=== PATIENT | female | born 1955 | race Caucasian/White ===

== ENCOUNTER → 2020-12-22 15:29 | Outpatient (CLI) | payer MEDICARE, SELFPAY ==
--- NOTE | ~2020-12-22 | MM_ITS ---
EXAMINATION: MM screening [facility] BI w michelle HISTORY: Screening mammogram TECHNIQUE: Craniocaudal and mediolateral oblique 3-D tomosynthesis images were obtained and synthetic 2-D images were generated. CAD analysis was submitted and interpreted. COMPARISON: 12/15/2018, 12/13/2017, 11/23/2015 BREAST PARENCHYMAL COMPOSITION: There are scattered areas of fibroglandular density. FINDINGS: Again noted is a stable mass of the outer left breast with the appearance of an intramammar y lymph node. There is no evidence of suspicious mass, calcification, or architectural distortion to suggest malignancy in either breast. There has been no suspicious interval change. IMPRESSION: 1. No mammographic evidence of malignancy. 2. Recommend routine screening mammography in one year. BI-RADS Category 2: Benign finding(s). Reviewed, dictated and finalized at location A.
== END ==
PROVIDERS: PCP Family Medicine Adolescent Medicine; Visit Provider Family Medicine Adolescent Medicine
DX: Z12.31 Encounter for screening mammogram for malignant neoplasm of breast (principal)
CPT/HCPCS: 77063; 77067

== ENCOUNTER 2021-01-27 05:28 | Day surgery (SDC) | payer MEDICARE, SELFPAY ==
[2021-01-17 14:54] VITALS: BMI 39.4
--- NOTE | 2021-01-27 09:08 | WPDANESEPPF ---
Anes - Initial Pre Proc Eval Procedure: Operation Date: 01/27/21 11:00 Proposed Procedures p Esophagogastroduodenoscopy - Lázaro Holley MD Date/Time: 01/27/21 09:08 Surgeon: Lázaro Holley MD Pre Op Diagnosis: GERD Patient Data Age: 65 Gender: F Height: 1.68 m Weight: 110.9 kg Allergies Allergy/AdvReac Type Severity Reaction Status Date / Time adhesive Allergy Severe RASH Verified 01/27/21 10:58 nickel Allergy Severe CAUSES Verified 01/27/21 10:58 SKIN TO BE GREEN phenobarbital Allergy Severe HYPERACTIVI Verified 01/17/21 14:38 TY tetanus toxoid, adsorbed Allergy Severe ABDOMINAL Verified 01/27/21 10:58 PAIN, DIAHRREA meperidine Allergy Mild HYPEREMESIS Verified 01/27/21 10:58 Demerol Allergy Unknown hyperactivi Uncoded 01/27/21 10:58 ty Home Medications Medication Instructions Recorded Confirmed Type Citracal Chew 500 mg PO DAILY 04/27/19 01/17/21 History Cranberry Plus Vitamin C 1 cap PO DAILY 04/27/19 01/17/21 History Dexilant 60 mg PO DAILY 04/27/19 01/17/21 History Januvia 100 mg PO DAILY 04/27/19 01/17/21 History Metamucil 1 tbsp PO DAILY 04/27/19 01/17/21 History Trulicity 0.75 mg SUBCUT WEEKLY 04/27/19 01/17/21 History atorvastatin 20 mg PO DAILY 04/27/19 01/17/21 History bupropion HCl 300 mg PO QAM 04/27/19 01/17/21 History buspirone 10 mg PO TID 04/27/19 01/17/21 History colesevelam [WelChol] 625 mg PO DAILY 04/27/19 01/17/21 History escitalopram oxalate 20 mg PO DAILY 04/27/19 01/17/21 History gabapentin 800 mg PO TID 04/27/19 01/17/21 History glimepiride 2 mg PO DAILY 04/27/19 01/17/21 History isosorbide mononitrate 30 mg PO DAILY 04/27/19 01/17/21 History lamotrigine 200 mg PO DAILY 04/27/19 01/17/21 History loratadine 10 mg PO DAILY 04/27/19 01/17/21 History losartan 50 mg PO DAILY 04/27/19 01/17/21 History magnesium 250 mg PO DAILY 04/27/19 01/17/21 History metformin 2,000 mg PO DAILY 04/27/19 01/17/21 History metoclopramide HCl 10 mg PO Q6H PRN 04/27/19 01/17/21 History multivitamin [One-A-Day Essential] 1 tablet PO DAILY 04/27/19 01/17/21 History nadolol 20 mg PO BID 04/27/19 01/27/21 History oxybutynin chloride 15 mg PO DAILY 04/27/19 01/17/21 History ropinirole 3 mg PO HS 04/27/19 01/17/21 History zinc 50 mg PO DAILY 04/27/19 01/17/21 History potassium gluconate 595 mg PO DAILY 05/13/19 01/17/21 History docusate sodium 100 mg PO BID 7 Days #14 cap 05/14/19 01/17/21 Rx hydrocodone-acetaminophen [Dunbar] 1 tablet PO Q6H PRN 7 Days #30 05/14/19 01/17/21 Rx tablet lorazepam 1 mg PO HS 7 Days #7 tablet 05/14/19 01/17/21 Rx rivaroxaban [Xarelto] 10 mg PO DAILY@17 12 Days #12 05/14/19 01/17/21 Rx tablet aspirin [Adult Aspirin] 81 mg PO DAILY 01/17/21 01/17/21 History icosapent ethyl [Vascepa] 2 g PO BID 01/17/21 01/17/21 History morphine 60 mg PO Q12H 01/17/21 01/17/21 History naloxegol [Movantik] 25 mg PO QAM 01/17/21 01/17/21 History nitroglycerin 0.4 mg SUBLINGUAL Q5-15M PRN 01/17/21 01/17/21 History nystatin [Nyamyc] TOPICAL 01/17/21 01/17/21 History Patient hx anesthesia problems: none Family hx anesthesia problems: none PMFSH Past Medical History Medical History Anxiety Arthritis Bilateral cataracts Maturing CAD (coronary artery disease) Nuclear stress test July 08, 2018 demonstrated small basal/anterior septal ischemia but no infarction with EF 57% History of 1 cardiac stent Depression MAJOR DEPRESSION RECURRENT, SEES , SHOCK TREATMENTS Diabetes Of 6.6 04/27/2019 Dyskinesia of esophagus Noted on EGD September 2014 Fibromyalgia Gastroesophageal reflux disease HTN (hypertension) Hypercholesterolemia Irritable bowel syndrome Obesity BMI of 35.1 Osteopenia after menopause Pulmonary hypertension rvsp 47 RLS (restless legs syndrome) Small airways disease Moderate small airway disease noted on PFTs from August 2017 Suicide attempt 2002 Surgical History Surgical Histor
[2021-01-27 10:57] LABS: Glucose Point of Care 186 mg/dl (65-105)
[2021-01-27 11:04] VITALS: BP 147/79; PULSE 85; RESP 18; TEMP 36.6; O2SAT 92; BMI 38.5
--- NOTE | 2021-01-27 11:15 | PM.HPGS ---
History of Present Illness History of Present Illness Consent: Risks, benefits, and alternatives have been discussed and questions answered. Patient agrees to proceed with procedure. Chief complaint: GERD Narrative: Deepika Mariee is a 65 year old female With refractory acid reflux symptoms. She is on a PPI chronically. Lately however she has had persistent issues with regurgitation. This happens every day and is worse after meals Review of Systems Review of Systems: All systems reviewed & are unremarkable except as noted in HPI and below PMFSH Past Medical History Medical History Anxiety Arthritis Bilateral cataracts Maturing CAD (coronary artery disease) Nuclear stress test July 08, 2018 demonstrated small basal/anterior septal ischemia but no infarction with EF 57% History of 1 cardiac stent Depression MAJOR DEPRESSION RECURRENT, SEES , SHOCK TREATMENTS Diabetes Of 6.6 04/27/2019 Dyskinesia of esophagus Noted on EGD September 2014 Fibromyalgia Gastroesophageal reflux disease HTN (hypertension) Hypercholesterolemia Irritable bowel syndrome Obesity BMI of 35.1 Osteopenia after menopause Pulmonary hypertension rvsp 47 RLS (restless legs syndrome) Small airways disease Moderate small airway disease noted on PFTs from August 2017 Suicide attempt 2001 Surgical History Surgical History H/O esophagogastroduodenoscopy September [address] Holley noting hiatal hernia and gastritis H/O exploratory laparotomy In 1999 and in 2003 History of coronary artery stent placement 1 cardiac stent June [address] Bay Shook, repeat cardiac catheterization June 2018 demonstrated patent stent of the proximal LAD ostial branch and disease noted to the ramus intermedius and left circ but the lesions were not flow limiting History of total hysterectomy with bilateral salpingo-oophorectomy (BSO) 1987 Hx of cholecystectomy Hx of tonsillectomy 1958 Hx of total knee arthroplasty Right total knee arthroplasty 2000 Family History Family History Father Hypertension Cerebrovascular accident Heart disease Mother Pancreatic cancer Sibling Paranoid schizophrenia Brother Social History Social History Social History: Patient is a former smoker. She does not drink alcohol or use illicit substances. She has 3 daughters who are relatively healthy. However 1 of her daughters has already had a knee replacement. Primary care physician is Dr. Amrik Arroyo. Smoking packs per day: 2 Smoking cigarettes per day: 40.0 Years smoked: 13 Smoking pack-years: 26.00 Smoking status: Former smoker Tobacco type: cigarettes Alcohol intake: former Substance use: never Substance use type: does not use Living arrangements: alone Gender identity (if verbalized by the patient): Female Spiritual care concerns: No Agree to blood products: Yes Meds Home Medications and Allergies Home Medications Medication Instructions Recorded Confirmed Type Citracal Chew 500 mg PO DAILY 04/27/19 01/17/21 History Cranberry Plus Vitamin C 1 cap PO DAILY 04/27/19 01/17/21 History Dexilant 60 mg PO DAILY 04/27/19 01/17/21 History Januvia 100 mg PO DAILY 04/27/19 01/17/21 History Metamucil 1 tbsp PO DAILY 04/27/19 01/17/21 History Trulicity 0.75 mg SUBCUT WEEKLY 04/27/19 01/17/21 History atorvastatin 20 mg PO DAILY 04/27/19 01/17/21 History bupropion HCl 300 mg PO QAM 04/27/19 01/17/21 History buspirone 10 mg PO TID 04/27/19 01/17/21 History colesevelam [WelChol] 625 mg PO DAILY 04/27/19 01/17/21 History escitalopram oxalate 20 mg PO DAILY 04/27/19 01/17/21 History gabapentin 800 mg PO TID 04/27/19 01/17/21 History glimepiride 2 mg PO DAILY 04/27/19 01/17/21
[2021-01-27] MEDS: LACTATED RINGERS 1,000 ML 150 ML IV CONT (11:21)
[2021-01-27] MEDS: BENZOCAINE (*SP) 60 ML SPRAY CAN (HURRICAINE) 1 SPRAY MUCOUS MEM (11:48)
[2021-01-27 12:04] VITALS: BP 116/67; PULSE 74; RESP 16; O2SAT 100
[2021-01-27 12:14] VITALS: BP 127/75; PULSE 70; RESP 18; O2SAT 99
--- NOTE | 2021-01-27 12:21 | SUR.PHASEII ---
PER DR SMITH PT IS TO RESUME XARELTO TODAY, PT NOTIFIED
[2021-01-27 12:24] VITALS: BP 133/81; PULSE 68; RESP 20; O2SAT 100
== END 2021-01-27 12:38 | disposition home or self-care (01) ==
PROVIDERS: PCP Family Medicine Adolescent Medicine; Visit Provider Internal Medicine Gastroenterology
PROC: 0DJ08ZZ Inspection of Upper Intestinal Tract, Via Natural or Artificial Opening Endoscopic (ICD-10-PCS; CPT 43235; principal; 2021-01-27 11:00)
DX: K21.9 Gastro-esophageal reflux disease without esophagitis (principal); K29.50 Unspecified chronic gastritis without bleeding; K22.4 Dyskinesia of esophagus; I10 Essential (primary) hypertension; I27.20 Pulmonary hypertension, unspecified; I25.10 Atherosclerotic heart disease of native coronary artery without angina pectoris; E11.9 Type 2 diabetes mellitus without complications; E78.00 Pure hypercholesterolemia, unspecified; E66.9 Obesity, unspecified; K58.9 Irritable bowel syndrome, unspecified; M79.7 Fibromyalgia; M85.80 Other specified disorders of bone density and structure, unspecified site; M19.90 Unspecified osteoarthritis, unspecified site; G25.81 Restless legs syndrome; H26.9 Unspecified cataract; F32.9 Major depressive disorder, single episode, unspecified; Z95.5 Presence of coronary angioplasty implant and graft; Z90.710 Acquired absence of both cervix and uterus; Z90.722 Acquired absence of ovaries, bilateral; Z90.49 Acquired absence of other specified parts of digestive tract; Z96.651 Presence of right artificial knee joint; Z87.891 Personal history of nicotine dependence
CPT/HCPCS: 43239; 82948; 88305; 88342; J2704; J7120

== ENCOUNTER 2021-03-04 22:26 | Emergency (ER) | payer MEDICARE, SELFPAY ==
--- NOTE | ~2021-03-04 | CT_ITS ---
EXAMINATION: CT brain wo con, CT facial bones wo con EXAM DATE: 03/05/2021 01:40 INDICATION: Blunt head injury. Laceration to chin, left cheek hematoma, pain. On blood thinners. Nose pain. TECHNIQUE: Spiral CT of the head was performed without contrast. Axial, coronal and sagittal images were reviewed. Spiral CT of the facial bones was performed without contrast. Axial images were revie wed. Coronal and sagittal reformatted images were also reviewed. The dose-length product (DLP) for this examination was 605.33 (accession [id number]), 499.35 (accession [id number]) mGy-cm. Th e exposure was tailored according to patient size, and iterative reconstruction (ASIR) was used as ad ditional dose reduction technique. Comparison is made to prior examination from 01/17/2019. FINDINGS: HEAD CT: There is no acute intraparenchymal hemorrhage. No evidence of intraparenchymal brain mass l esion. No evidence of acute infarction. There is no mass effect or midline shift. There is no obstr uctive hydrocephalus suspected. There are no extra-axial collections. There are no calvarial acute fractures. FACIAL CT: There are no displaced acute nasal bone fractures. The mandible, sinuses and orbits are i ntact. The orbits, globes and extraocular muscles are unremarkable. There is small left cheek hem atoma, surrounding left periorbital edema. Small focus of subcutaneous emphysema underneath the chin, probably a laceration, clinical correlation. The visualized sinuses and mastoid air cells are well aerated. IMPRESSION: 1. No acute intracranial findings. 2. No acute facial fracture. 3. Left cheek contusion, periorbital swelling, chin laceration. Reviewed, dictated and finalized at location A. IMPRESSION: 1. No acute intracranial findings. 2. No acute facial fracture. 3. Left cheek contusion, periorbital swelling, chin laceration.
[2021-03-04 22:30] VITALS: BP 110/90; PULSE 95; RESP 17; TEMP 36.4; O2SAT 95
--- NOTE | 2021-03-04 23:18 | PC.NURSE ---
Pt arrives with mask in place and reported chin laceration. Bleeding controlled and no s/s of distress. speech clear.
--- NOTE | 2021-03-05 00:16 | ED.WOUNDLAC ---
HPI - Wound/Laceration General Chief Complaint: Wound/Laceration Stated Complaint: FALL AND HIT FACE ON BACK DOOR - CHIN LAC Time Seen by Provider: 03/04/21 23:51 History of Present Illness HPI narrative: Patient is a 65-year-old female who presents ER with laceration to her chin. She reports she was fighting with her 20 pound cat to get it down stairs when she tripped over it and fell into a door. The door apparently had runs on it. She struck her face and hit her chin on the drawing as she fell down. She did not lose consciousness but she does have significant bruising to her face. She is on a blood thinner. She has a laceration to the underside of her chin. She is allergic to tetanus vaccine Related Data Home Medications Medication Instructions Recorded Confirmed Citracal Chew 500 mg PO DAILY 04/27/19 01/17/21 Cranberry Plus Vitamin C 1 cap PO DAILY 04/27/19 01/17/21 Dexilant 60 mg PO DAILY 04/27/19 01/17/21 Januvia 100 mg PO DAILY 04/27/19 01/17/21 Metamucil 1 tbsp PO DAILY 04/27/19 01/17/21 Trulicity 0.75 mg SUBCUT WEEKLY 04/27/19 01/17/21 atorvastatin 20 mg PO DAILY 04/27/19 01/17/21 bupropion HCl 300 mg PO QAM 04/27/19 01/17/21 buspirone 10 mg PO TID 04/27/19 01/17/21 colesevelam [WelChol] 625 mg PO DAILY 04/27/19 01/17/21 escitalopram oxalate 20 mg PO DAILY 04/27/19 01/17/21 gabapentin 800 mg PO TID 04/27/19 01/17/21 glimepiride 2 mg PO DAILY 04/27/19 01/17/21 isosorbide mononitrate 30 mg PO DAILY 04/27/19 01/17/21 lamotrigine 200 mg PO DAILY 04/27/19 01/17/21 loratadine 10 mg PO DAILY 04/27/19 01/17/21 losartan 50 mg PO DAILY 04/27/19 01/17/21 magnesium 250 mg PO DAILY 04/27/19 01/17/21 metformin 2,000 mg PO DAILY 04/27/19 01/17/21 metoclopramide HCl 10 mg PO Q6H PRN 04/27/19 01/17/21 multivitamin [One-A-Day Essential] 1 tablet PO DAILY 04/27/19 01/17/21 nadolol 20 mg PO BID 04/27/19 01/27/21 oxybutynin chloride 15 mg PO DAILY 04/27/19 01/17/21 ropinirole 3 mg PO HS 04/27/19 01/17/21 zinc 50 mg PO DAILY 04/27/19 01/17/21 potassium gluconate 595 mg PO DAILY 05/13/19 01/17/21 Movantik 25 mg PO QAM 01/17/21 01/17/21 aspirin 81 mg PO DAILY 01/17/21 01/17/21 icosapent ethyl [Vascepa] 2 g PO BID 01/17/21 01/17/21 morphine 60 mg PO Q12H 01/17/21 01/17/21 nitroglycerin 0.4 mg SUBLINGUAL Q5-15M PRN 01/17/21 01/17/21 nystatin [Nyamyc] TOPICAL 01/17/21 01/17/21 Allergies Allergy/AdvReac Type Severity Reaction Status Date / Time adhesive Allergy Severe RASH Verified 03/04/21 22:33 nickel Allergy Severe CAUSES Verified 03/04/21 22:33 SKIN TO BE GREEN phenobarbital Allergy Severe HYPERACTIVI Verified 03/04/21 22:33 TY tetanus toxoid, adsorbed Allergy Severe ABDOMINAL Verified 03/04/21 22:33 PAIN, DIAHRREA meperidine Allergy Mild HYPEREMESIS Verified 03/04/21 22:33 Demerol Allergy Unknown hyperactivi Uncoded 01/27/21 10:58 ty Review of Systems Review of Systems: All systems reviewed & are unremarkable except as noted in HPI and below Constitutional: Constitutional: Denies chills, Denies fever(s) and Denies weakness ENT: Comments: Left cheek bruising/swelling/pain. Chin laceration. Gastrointestinal: Gastrointestinal: Denies abdominal pain, Denies nausea and Denies vomiting Neurologic: Denies syncope, Denies headache(s), Denies focal weakness and Denies numbness PMFSH Past Medical History Medical History Anxiety Arthritis Bilateral cataracts Maturing CAD (coronary artery disease) Nuclear stress test July 08, 2018 demonstrated small basal/anterior septal ischemia but no infarction with EF 57% History of 1 cardiac stent Depression MAJOR DEPRESSION RECURRENT, SEES , SHOCK TREATMENTS Diabetes Of 6.6 04/27/2019 Dyskinesia of esophagus Noted on EGD September 2014 Fibromyalgia Gastroesophageal reflux disease HTN (hypertension) Hypercholesterolemia Irritable bowel syndrome Obesity BMI of 35.1 Osteopenia after menopause
[2021-03-05] MEDS: ONDANSETRON HCL ODT 4 MG TABLET PO (00:28)
--- NOTE | 2021-03-05 01:03 | PC.NURSE ---
ERP in room suturing patient.
--- NOTE | 2021-03-05 01:21 | PC.NURSE ---
Patient taken to CT.
[2021-03-05 02:58] VITALS: BP 121/58; PULSE 84; RESP 17; TEMP 36.1; O2SAT 96
== END 2021-03-05 03:00 | disposition home or self-care (01) ==
PROVIDERS: Emergency Provider Emergency Medicine; PCP Family Medicine Adolescent Medicine
DX: S01.81XA Laceration without foreign body of other part of head, initial encounter (principal); S00.83XA Contusion of other part of head, initial encounter; I25.10 Atherosclerotic heart disease of native coronary artery without angina pectoris; E11.9 Type 2 diabetes mellitus without complications; I10 Essential (primary) hypertension; E78.00 Pure hypercholesterolemia, unspecified; I27.20 Pulmonary hypertension, unspecified; K22.4 Dyskinesia of esophagus; E66.9 Obesity, unspecified; Z68.41 Body mass index [BMI] 40.0-44.9, adult; M79.7 Fibromyalgia; M85.80 Other specified disorders of bone density and structure, unspecified site; M19.90 Unspecified osteoarthritis, unspecified site; G25.81 Restless legs syndrome; F41.9 Anxiety disorder, unspecified; F32.9 Major depressive disorder, single episode, unspecified; Z79.01 Long term (current) use of anticoagulants; Z79.82 Long term (current) use of aspirin; Z79.84 Long term (current) use of oral hypoglycemic drugs; Z95.5 Presence of coronary angioplasty implant and graft; Z96.651 Presence of right artificial knee joint; Z87.891 Personal history of nicotine dependence; W01.198A Fall on same level from slipping, tripping and stumbling with subsequent striking against other object, initial encounter
CPT/HCPCS: 12013; 70450; 70486; 99284; A9270

== ENCOUNTER 2021-08-11 09:59 | Outpatient (CLI) | payer OTHER, SELFPAY ==
--- NOTE | ~2021-08-11 | XR_ITS ---
XR UGI w esoph water soluble DATE: 08/11/2021 10:46 INDICATION: Gastroesophageal reflux TECHNIQUE: Fluoroscopy and rapid sequence spot radiographs during oral ingestion of barium. Spot and overhead images of the esophagus, stomach and duodenum. 140 images 50.9 DAP 1.1 minutes fluoroscopy time COMPARISON: 01/19/2019 CT abdomen pelvis FINDINGS: There is abnormal posterior impression upon the lower cervical esophagus due to cricopharyn geus muscle dysfunction. Otherwise no stricture, mucosal fold thickening, erosion, ulceration or intraluminal mass lesion of t he esophagus, stomach or duodenum is detected. The proximal small bowel mucosal pattern appears troy l. IMPRESSION: Cricopharyngeus muscle dysfunction Reviewed, dictated and finalized at Location [facility]. Reviewed, dictated and finalized at location A. D OPERATIONS MANAGER
== END 2021-08-11 10:00 | disposition home or self-care (01) ==
LOC: ANHIMG 10:03
PROVIDERS: PCP Family Medicine Adolescent Medicine; Visit Provider Surgery
DX: K21.9 Gastro-esophageal reflux disease without esophagitis (principal); R13.10 Dysphagia, unspecified
CPT/HCPCS: 74240

== ENCOUNTER 2022-02-16 12:21 | Outpatient (CLI) | payer OTHER, MEDICAID, SELFPAY ==
[2022-02-16 13:39] LABS: Basophils Percent Auto 0.5 % (0.2-1.2); Eosinophils Absolute Auto 0.2 K/mm3 (0-0.3); Eosinophils Percent Auto 3.7 % (0-4.4); Hemoglobin 10.4 g/dL (12.0-15.0); Immature Granulocyte Absolute 0.01 K/mm3 (0.00-0.031); Immature Granulocyte Percent A 0.2 % (0-0.5); Lymphocytes Absolute Auto 1.93 K/mm3 (0.9-3.2); Lymphocytes Percent Auto 33.7 % (18.3-44.2); Mean Corpuscular HGB Conc 30.6 g/dl (32-36); Mean Corpuscular Hemoglobin 24.8 pg (26-34); Mean Corpuscular Volume 81.1 fl (80-100); Monocytes Absolute Auto 0.4 K/mm3 (0.1-0.6); Monocytes Percent Auto 6.1 % (2.6-8.5); Neutrophils Absolute Auto 3.2 K/mm3 (1.3-6.7); Neutrophils Percent Auto 55.8 % (45.5-73.1); Platelet Count Result 255 k/mm3 (150-375); Red Blood Count 4.19 M/mm3 (4.2-5.4); Red Cell Distribution Width 14.6 % (11.5-14.5); White Blood Count 5.7 K/mm3 (4.5-10.0)
[2022-02-16 13:51] LABS: Alanine Aminotransferase 16 U/L (6-35); Albumin Level 4.4 g/dL (3.5-5.1); Alkaline Phosphatase 69 U/L (38-126); Anion Gap 12 mmol/L (8-16); Aspartate Amino Transferase 20 U/L (14-36); Bilirubin,Total 0.1 mg/dL (0.2-1.3); Blood Urea Nitrogen 11 mg/dL (7-17); CRP 0.5 mg/dL (<1.0); Calcium 8.5 mg/dL (8.4-10.2); Carbon Dioxide 28 mmol/L (22-30); Chloride 98 mmol/L (98-107); Estimated Glomerular Filt Rate > 60; Glucose 181 mg/dL (65-110); Potassium 4.4 mmol/L (3.4-5.0); Sodium 138 mmol/L (137-145)
== END 2022-02-16 12:22 | disposition home or self-care (01) ==
PROVIDERS: PCP Family Medicine Adolescent Medicine; Referring Provider Orthopaedic Surgery; Visit Provider Internal Medicine Cardiovascular Disease
DX: R94.39 Abnormal result of other cardiovascular function study (principal); I25.118 Atherosclerotic heart disease of native coronary artery with other forms of angina pectoris; Z01.810 Encounter for preprocedural cardiovascular examination; T85.698A Other mechanical complication of other specified internal prosthetic devices, implants and grafts, initial encounter; T84.039A Mechanical loosening of unspecified internal prosthetic joint, initial encounter
CPT/HCPCS: 36415; 80053; 85025; 86140

== ENCOUNTER 2022-02-20 00:43 | Day surgery (SDC) | payer OTHER, MEDICAID, SELFPAY ==
[2022-02-19 15:51] VITALS: BMI 38.5
[2022-02-20] VITALS (11 sets, daily range): BP systolic 101–132; BP diastolic 54–64; PULSE 61–76; RESP 12–17; TEMP 36.8; O2SAT 90–95; BMI 38.6
--- NOTE | 2022-02-20 09:18 | WPDMODSED ---
Moderate Sedation Note-Pt Data Patient Data Allergies Allergy/AdvReac Type Severity Reaction Status Date / Time adhesive Allergy Severe RASH Verified 02/20/22 07:19 nickel Allergy Severe CAUSES Verified 02/20/22 07:19 SKIN TO BE GREEN phenobarbital Allergy Severe HYPERACTIVI Verified 02/20/22 07:19 TY tetanus toxoid, adsorbed Allergy Severe ABDOMINAL Verified 02/20/22 07:19 PAIN, DIAHRREA meperidine Allergy Mild HYPEREMESIS Verified 02/20/22 07:19 Demerol Allergy Unknown hyperactivi Uncoded 02/19/22 15:38 ty Home Medications Medication Instructions Recorded Confirmed Type cranberry concentrate-ascorbic 1 cap PO DAILY 04/27/19 02/19/22 History acid 140 mg-100 mg capsule (Cranberry Plus Vitamin C) multivitamin (One-A-Day Essential 1 tablet PO DAILY 04/27/19 02/19/22 History tablet) psyllium husk 3.4 gram/5.4 gram 1 tbsp PO DAILY 04/27/19 02/19/22 History oral powder (Metamucil) zinc 50 mg tablet 50 mg PO DAILY 04/27/19 02/19/22 History potassium gluconate 595 mg (99 mg) 595 mg PO DAILY 05/13/19 02/19/22 History tablet rivaroxaban 10 mg tablet (Xarelto) 10 mg PO DAILY@17 12 days #12 tabs 05/14/19 02/19/22 Rx aspirin 81 mg tablet 81 mg PO DAILY 01/17/21 02/19/22 History nitroglycerin 0.4 mg sublingual 0.4 mg sublingual Q5-15M PRN Chest 01/17/21 02/19/22 History tablet Pain nystatin 100,000 unit/gram topical See Rx Instructions .Route .COMPLEX 01/17/21 02/19/22 History powder (Nyamyc) atorvastatin 20 mg tablet 20 mg PO DAILY #30 tabs 08/16/21 02/19/22 Rx colesevelam 625 mg tablet (WelChol) 625 mg PO DAILY #30 tabs 08/16/21 02/19/22 Rx dulaglutide 0.75 mg/0.5 mL 0.75 mg (0.5 mL) subcut WEEKLY #4 08/16/21 02/19/22 Rx subcutaneous pen injector mL (Trulicity) escitalopram oxalate 20 mg tablet 20 mg PO DAILY #30 tabs 08/16/21 02/19/22 Rx gabapentin 800 mg tablet 800 mg PO TID #90 tabs 08/16/21 02/19/22 Rx glimepiride 2 mg tablet 2 mg PO DAILY #30 tabs 08/16/21 02/19/22 Rx icosapent ethyl 1 gram capsule 2 g PO BID #120 caps 08/16/21 02/19/22 Rx (Vascepa) isosorbide mononitrate 30 mg 30 mg PO DAILY #30 tabs 08/16/21 02/19/22 Rx tablet,extended release 24 hr lamotrigine 200 mg tablet 200 mg PO DAILY #30 tabs 08/16/21 02/19/22 Rx loratadine 10 mg tablet 10 mg PO DAILY #30 tabs 08/16/21 02/19/22 Rx losartan 50 mg tablet 50 mg PO DAILY #30 tabs 08/16/21 02/19/22 Rx magnesium 250 mg tablet 250 mg PO DAILY #30 tabs 08/16/21 02/19/22 Rx metformin 500 mg tablet 2,000 mg PO DAILY #120 tabs 08/16/21 02/19/22 Rx naloxegol 25 mg tablet (Movantik) 25 mg PO QAM #30 tabs 08/16/21 02/19/22 Rx metoclopramide HCl 10 mg tablet 10 mg PO QHS PRN Nausea #90 tabs 09/08/21 02/19/22 Rx dexlansoprazole 60 mg 60 mg PO DAILY #30 caps 09/25/21 02/19/22 Rx capsule,biphase delayed release (Dexilant) bupropion HCl 300 mg 24 hr tablet, 300 mg PO QAM 10/23/21 02/19/22 History extended release docusate sodium 100 mg capsule 200 mg PO DAILY 10/23/21 02/19/22 History (Stool Softener) hydrocodone 10 mg-acetaminophen 1 tablet PO Q8H PRN Pain 10/23/21 02/19/22 History 325 mg tablet meclizine 25 mg tablet 25 mg PO QID 10/23/21 02/19/22 History oxybutynin chloride 10 mg 10 mg PO DAILY 10/23/21 02/19/22 History tablet,extended release 24 hr prochlorperazine maleate 10 mg 10 mg PO Q8H PRN Nausea 10/23/21 02/19/22 History tablet ropinirole 3 mg tablet 3 mg PO QHS #30 tabs 10/23/21 02/19/22 Rx budesonide 0.5 mg/2 mL suspension 0.5 mg (2 mL) inhalation BID #120 10/31/21 02/19/22 Rx for nebulization mL propranolol 120 mg capsule,24 See Rx Instructions .Route 11/01/21 02/19/22 Rx hr,extended release .COMPLEX #30 caps sitagliptin 100 mg tablet (Januvia) 100 mg PO DAILY #30 tabs 11/01/21 02/19/22 Rx nystatin 100,000 unit/gram topical 1 applic topical BID #30 grams 11/02/21 02/19/22 Rx cream morphine 60 mg tablet,extended 60 mg PO Q12H #60 tabs 01/23/22 02/19/22 Rx release primidone 50 mg
--- NOTE | 2022-02-20 09:19 | WPDHPUPDATE1 ---
History and Physical Update Update Date/Time: 02/20/22 09:19 History and Physical has been reviewed, including an updated exam of the patient. There are NO changes in the patient's condition. Risks, benefits, and alternatives have been discussed and questions answered. Patient agrees to proceed with procedure.
--- NOTE | 2022-02-20 10:55 | PM.IMHP ---
H&P: HPI History of Present Illness Date/Time: 02/20/22 10:55 Chief Complaint: Shortness of breath Narrative: 66-year-old female with known CAD, history of PCI/stenting of ostial-proximal LAD using 2.75 x 24 mm everolimus eluting stent on 07/04/2017; type 2 diabetes mellitus, dyslipidemia, obesity. Patient was referred by Dr. Oro for coronary angiogram in the setting of shortness of breath and abnormal MPI. Patient has been experiencing dyspnea on exertion and left arm discomfort with exertion. Review of Systems Review of Systems: General: Negative for fever, chills, fatigue Psychological: Negative for anxiety, depression Ophthalmic: negative for loss of vision ENT: Negative for epistaxis, headaches Allergy and immunology: Negative for hives, nasal congestion Hematologic and lymphatic: Negative for overt bleeding problems Endocrine: Negative for hot flashes, palpitations Respiratory: Negative for cough, hemoptysis Cardiovascular: Negative for chest pain, Positive for shortness of breath and left arm pain Gastrointestinal: Negative for abdominal pain, nausea, vomiting, hematochezia Musculoskeletal: Negative for myalgia, joint pains Neurological: Negative for weakness Dermatological: Negative for rash, skin discoloration PMFSH Past Medical History Medical History Bilateral cataracts Maturing Dyskinesia of esophagus Noted on EGD September 2014 Fibromyalgia Gastroesophageal reflux disease HTN (hypertension) Obesity BMI of 35.1 Osteopenia after menopause Pulmonary hypertension rvsp 47 RLS (restless legs syndrome) Small airways disease Moderate small airway disease noted on PFTs from August 2017 Suicide attempt 2001 Surgical History Surgical History H/O esophagogastroduodenoscopy September [address] Holley noting hiatal hernia and gastritis H/O exploratory laparotomy In 1999 and in 2003 History of coronary artery stent placement 1 cardiac stent June [address] Bay Shook, repeat cardiac catheterization June 2018 demonstrated patent stent of the proximal LAD ostial branch and disease noted to the ramus intermedius and left circ but the lesions were not flow limiting History of total hysterectomy with bilateral salpingo-oophorectomy (BSO) 1987 Hx of cholecystectomy Hx of tonsillectomy 1958 Hx of total knee arthroplasty Right total knee arthroplasty 2000 Family History Family History Father Hypertension Cerebrovascular accident Heart disease Mother Pancreatic cancer Sibling Paranoid schizophrenia Brother Daughter No problems noted. Daughter No problems noted. Daughter No problems noted. Social History Social History (Updated 01/23/22 @ 14:42 by Steffanie Ramirez MA) Social History: Patient is a former smoker. She does not drink alcohol or use illicit substances. She has 3 daughters who are relatively healthy. Primary care physician is Dr. Amrik Arroyo. Smoking packs per day: 2 Smoking cigarettes per day: 40.0 Years smoked: 13 Smoking pack-years: 26.00 Smoking status: Former smoker Tobacco type: cigarettes Second hand tobacco smoke exposure: No Smoking end date: 06/10/97 Alcohol intake: former Substance use: never Substance use type: does not use Gender identity (if verbalized by the patient): Female Spiritual care concerns: No Agree to blood products: Yes Meds Home Medications and Allergies Home Medications Medication Instructions Recorded Confirmed Type cranberry concentrate-ascorbic 1 cap PO DAILY 04/27/19 02/19/22 History acid 140 mg-100 mg capsule (Cranberry Plus Vitamin C) multivitamin (One-A-Day Essential 1 tablet PO DAILY 04/27/19 02/19/22 History tablet) psyllium husk 3.4 gram/5.4
--- NOTE | 2022-02-20 10:59 | WPDCARDPROC ---
Cardiac Cath Procedure Note Date of procedure:: 02/20/22 Performing physician:: Nathan Rivera MD Procedure Procedure performed:: CARDIAC CATHETERIZATION AND PERCUTANEOUS CORONARY INTERVENTION REPORT DATE OF PROCEDURE: 02/20/2022 INDICATION FOR PROCEDURE: Shortness of breath, left arm discomfort with exertion; abnormal MPI BRIEF CLINICAL HISTORY: 66-year-old female with known CAD, history of PCI/stenting of ostial-proximal LAD using 2.75 x 24 mm everolimus eluting stent on ?07/04/2017; type 2 diabetes mellitus, dyslipidemia, obesity. ? Patient was referred by Dr. Shook for coronary angiogram in the setting of shortness of breath, exertional left arm discomfort and abnormal MPI.? Patient had MPI done on 01/24/2022 which reportedly showed borderline/equivocal ischemic changes on the EKG; EF 73%, small area of mild apical lateral ischemia. Benefits and risks of the procedure were discussed with the patient in depth, and informed consent was obtained prior to the procedure. Risks of the procedure include but are not limited to vascular complications including groin hematoma, retroperitoneal bleed, vessel perforation; periprocedural HI, cardiac arrhythmias, stroke, contrast induced nephropathy, and . After discussing all the benefits, risks and alternatives, patient was willing to proceed with the procedure. PROCEDURES PERFORMED: 1. Left heart catheterization- Selective left and right coronary angiogram; left ventriculogram and hemodynamic assessment 2. Percutaneous coronary intervention- a) Intravascular ultrasound ( IVUS) of left main; ostial-proximal LAD b) IVUS of left main and ostial left circumflex artery; and ramus intermedius 3. Selective right common femoral angiogram and deployment of Mynx hemostatic device 4. Moderate sedation-CPT code 72641 MODERATE SEDATION: Midazolam 1 mg; fentanyl 25 mcg. Start time 0940 , Stop time 1047 ; Total puif-on-eutk time 67 minutes; Milton Hurley RN was trained observer for moderate sedation. ACCESS SITE: Right common femoral artery PROCEDURE NOTE: After obtaining informed consent, patient was brought to catheterization lab and prepped and draped in a usual sterile manner. After local anesthesia with lidocaine, right common femoral artery access was taken with micropuncture needle followed by insertion of a 5 Slovak sheath. Selective left and right coronary angiogram was performed using 5 Slovak JL4 and JR4 catheters respectively. Orthogonal views were taken. Next, a 5 Slovak pigtail catheter was advanced in the LV cavity and was flushed with normal saline. LV pressure measurement was performed. After this, left ventriculogram was performed. The catheter was flushed again, and gradient across the aortic valve was measured on the pullback of the catheter. The angiographic and IVUS findings are described below. FINDINGS: LEFT MAIN CORONARY: The left main coronary artery is a medium to large caliber vessel with about 20-30% narrowing at the ostial-proximal segment; and about 20-30% narrowing at the distal segment. The vessel trifurcates into LAD, ramus intermedius and left circumflex branches. LEFT ANTERIOR DESCENDING ARTERY: The LAD is a medium caliber vessel. Previously placed stent at the ostium -proximal segment is patent without significant lumen loss angiographically. The vessel tapers distally and reaches the LV apex. Diagonal branches are small caliber vessels. RAMUS INTERMEDIUS: The ramus intermedius is a medium caliber vessel with poorly defined stenosis at the ostium. LEFT CIRCUMFLEX ARTERY: The left circumflex artery is a medium to large caliber vessel with high-grade stenosis at the ostium. The vessel continues as OM branch the significant focal stenosis. RIGHT CORONARY ARTERY: Large size, dominant vessel without significant focal stenosis. Gives rise to medium caliber PDA and PLV branches. There is some collateral filling of LCX from distal RCA branch. LEFT
[2022-02-20 11:32] LABS: Activated Clotting Time 295 SEC (74-137)
--- NOTE | 2022-02-20 11:40 | SUR.PHASEII ---
Pt resting in bed, daughter at bedside, NAD noted, VSS, respirations even and unlabored. O2 saturation 90% RA, O2 sat increases when pt encouraged to take a deep breath, denies shortness of breath. Pt etco2 increased with supplemental O2 during procedure. Will continue to monitor O2 saturation and need for supplemental O2. Side rails up x 2, call light within reach.
[2022-02-20] MEDS: SODIUM CHLORIDE 0.9% IV 1,000 ML 125 ML IV CONT (12:17)
[2022-02-20] MEDS: SODIUM CHLORIDE 0.9% IV 500 ML 100 ML IV CONT (12:18)
--- NOTE | 2022-02-20 12:53 | SUR.PHASEII ---
Pt resting in bed, head of bed elevated to 30 degrees, meal tray given, right groin puncture site clear, no bleeding or hematoma.
== END 2022-02-20 14:22 | disposition home or self-care (01) ==
PROVIDERS: PCP Family Medicine Adolescent Medicine; Visit Provider Internal Medicine Cardiovascular Disease
PROC: 4A023N7 Measurement of Cardiac Sampling and Pressure, Left Heart, Percutaneous Approach (ICD-10-PCS; CPT 93452; principal; 2022-02-20 08:30)
PROC: (CPT 92979; 2022-02-20 08:30)
DX: I25.10 Atherosclerotic heart disease of native coronary artery without angina pectoris (principal); R93.1 Abnormal findings on diagnostic imaging of heart and coronary circulation; R06.02 Shortness of breath; Z95.5 Presence of coronary angioplasty implant and graft; E11.9 Type 2 diabetes mellitus without complications; E78.5 Hyperlipidemia, unspecified; I10 Essential (primary) hypertension; M79.7 Fibromyalgia; M85.80 Other specified disorders of bone density and structure, unspecified site; I27.20 Pulmonary hypertension, unspecified; Z91.51 Personal history of suicidal behavior; G25.81 Restless legs syndrome; J45.909 Unspecified asthma, uncomplicated; H26.9 Unspecified cataract; E66.9 Obesity, unspecified; Z68.38 Body mass index [BMI] 38.0-38.9, adult; Z87.891 Personal history of nicotine dependence; Z79.82 Long term (current) use of aspirin; Z79.899 Other long term (current) drug therapy; Z79.84 Long term (current) use of oral hypoglycemic drugs; Z79.51 Long term (current) use of inhaled steroids; Z79.891 Long term (current) use of opiate analgesic
CPT/HCPCS: 36415; 80053; 85025; 86140; 92978; 92979; 93458; C1753; C1760; C1769; C1887; C1894; G0269; J0583; J1644; J2250; J3010; J7030; J7040

== ENCOUNTER 2022-05-24 10:08 | Outpatient (CLI) | payer OTHER, MEDICAID, SELFPAY ==
--- NOTE | ~2022-05-24 | CT_ITS ---
EXAMINATION: NM bone 3 phase, CT knee LT wo con DATE: 05/24/2022 13:51 INDICATION: Mechanical complication of implant at the left knee TECHNIQUE: 1. 23.3 mCi Tc-99m HDP by intravenous route. Scintigrams of the bilateral knees were obtained in ang iographic, blood pool, and delayed phases. 2. High resolution computed tomography (CT) of the left knee was performed without intravenous contra st. Additional sagittal and coronal reconstructions were performed. Automated exposure control and it erative reconstruction technique were employed. The dose-length product was 461.42 mGy-cm. COMPARISON: Left knee radiographs dated 05/12/2019 FINDINGS: Bone scan: Normal symmetric patterns of activity at both knees on the early angiographic days of imaging. Photop enic defects are seen at both knees on the immediate and delayed imaging corresponding to bilateral t otal knee arthroplasties. There is otherwise normal symmetric distribution of soft tissue activity on the immediate blood pool images. Asymmetric mild increased uptake underlying the medial side of the tibial tray at the left knee. There is otherwise normal symmetric distribution of mild linear activit y along the margins of the bilateral femoral and tibial components of the arthroplasties and at the b ilateral patellae. Left knee CT: Left total knee arthroplasty with patellar resurfacing which is in essentially anatomic alignment. Th ere is metallic streak artifact which partially obscures the immediately adjacent bone and soft tissu es. There is a small triangular region of increased lucency situated between the proximal aspect of t he posterior tibial component and the central aspect of the anteromedial quadrant of the tibial tray. This region measures 1.5 cm medial to lateral, 1.1 cm AP and up to 7 mm craniocaudally. This surroun ds a small amount of more dense cement appears to extend towards small round lucent likely coronal wh ole tract which extends anteromedially towards a oblique coronal whole tract which extends from anter omedial to posterolateral across the medial metaphyseal region of the proximal tibia. There is no oth er lucency surrounding the arthroplasty components to suggest loosening. Small left knee joint effusi on at the suprapatellar pouch. Sagittally oriented linear band of postoperative scarring the subcutan eous tissues anterior to the knee. Soft tissues are otherwise unremarkable. IMPRESSION: 1. Bilateral total knee arthroplasties with relatively mild asymmetric increased uptake underlying t he anteromedial aspect of the tibial component of the left knee arthroplasty. There is a correspondin g small region of increased lucency along side the tibial component at this location however this thor rounds a small amount of cement which extends towards an apparent drill tract in the underlying metap hysis. The absence of any further abnormal increased lucency or abnormal uptake surrounding the remai nder of the tibial component would argue against loosening and there is no suggestion of inflammation either on CT imaging or on the angiographic and immediate blood pool scintigraphic images to suggest infection or fracture. Reviewed, dictated and finalized at location A. COMMUNICATOR IMPRESSION: 1. Bilateral total knee arthroplasties with relatively mild asymmetric increas ed uptake underlying the anteromedial aspect of the tibial component of the lef t knee arthroplasty. There is a corresponding small region of increased lucency along side the tibial component at this location however this surrounds a smal l amount of cement which extends towards an apparent drill tract in the underly ing metaphysis. The absence of any further abnormal increased lucency or abnorm al uptake surrounding the remainder of the tibial com
== END 2022-05-24 10:09 | disposition home or self-care (01) ==
PROVIDERS: PCP Family Medicine Adolescent Medicine; Visit Provider Orthopaedic Surgery
DX: T85.698A Other mechanical complication of other specified internal prosthetic devices, implants and grafts, initial encounter (principal); T84.039A Mechanical loosening of unspecified internal prosthetic joint, initial encounter
CPT/HCPCS: 73700; 78315; A9561

== ENCOUNTER 2022-06-13 10:18 | Outpatient (CLI) | payer OTHER, MEDICAID, SELFPAY ==
--- NOTE | ~2022-06-13 | US_ITS ---
EXAMINATION: US knee asp inj w image LT DATE: 06/13/2022 11:46 INDICATION: Left knee joint effusion. TECHNIQUE: The procedure including the risks, benefits, and alternatives was discussed with the patie nt. Risks discussed included bleeding and infection. The patient understood the risks and agreed to p roceed. The skin overlying the left knee was prepped and draped in usual sterile fashion. Anesthetic was administered with 1% lidocaine subcutaneously. An 18 gauge needle was inserted into the left kn ee joint effusion using ultrasound guidance. Fluid was aspirated, and the needle was removed. The ent ry site was cleaned and dressed. There were no immediate complications. FINDINGS: There is a left knee joint effusion. IMPRESSION: 1. Ultrasound-guided needle aspiration of a left knee joint effusion yielding 15 mL serosanguineous f luid. Reviewed, dictated and finalized at location A. COVERER IMPRESSION: 1. Ultrasound-guided needle aspiration of a left knee joint effusion yielding 1 5 mL serosanguineous fluid.
== END 2022-06-13 10:19 | disposition home or self-care (01) ==
LOC: ANHIMG 10:23
PROVIDERS: PCP Family Medicine Adolescent Medicine; Visit Provider Orthopaedic Surgery
DX: Z96.652 Presence of left artificial knee joint (principal)
CPT/HCPCS: 20611; 87070; 87075; 87205

== ENCOUNTER 2022-06-21 13:49 | Outpatient (CLI) | payer OTHER, MEDICAID, SELFPAY ==
[2022-06-21 14:26] LABS: CRP < 0.5 mg/dL (<1.0)
[2022-06-21 14:57] LABS: Erythrocyte Sedimentation Rate 28 mm/hr (0-20)
== END 2022-06-21 13:50 | disposition home or self-care (01) ==
LOC: ANHLAB 13:51
PROVIDERS: PCP Family Medicine Adolescent Medicine; Visit Provider Orthopaedic Surgery
DX: T85.698A Other mechanical complication of other specified internal prosthetic devices, implants and grafts, initial encounter (principal); T84.039A Mechanical loosening of unspecified internal prosthetic joint, initial encounter
CPT/HCPCS: 36415; 85652; 86140

== ENCOUNTER 2022-08-16 15:00 | Outpatient (RCR) | payer OTHER, MEDICAID, SELFPAY ==
[2022-05-08 15:43] VITALS: PULSE 76
== END 2022-08-16 18:48 | disposition home or self-care (01) ==
LOC: ANHCPREHAB 15:00
PROVIDERS: PCP Family Medicine Adolescent Medicine; Visit Provider Nurse Practitioner Adult Health
DX: Z95.5 Presence of coronary angioplasty implant and graft (principal)
CPT/HCPCS: 93798

== ENCOUNTER → 2023-04-16 14:00 | Outpatient (CLI) | payer OTHER, MEDICAID, SELFPAY ==
--- NOTE | ~2023-04-16 | MM_ITS ---
EXAMINATION: MM screening [facility] BI w michelle HISTORY: Screening TECHNIQUE: Craniocaudal and mediolateral oblique 3-D tomosynthesis images were obtained and synthetic 2-D images were generated. CAD analysis was submitted and interpreted. COMPARISON: Comparison to multiple prior studies sequentially, with oldest reviewed study dated 11/2014. BREAST PARENCHYMAL COMPOSITION: There are scattered areas of fibroglandular density. FINDINGS: There is no evidence of suspicious mass, calcification, or architectural distortion to sugg est malignancy in either breast. There has been no suspicious interval change. IMPRESSION: 1. No mammographic evidence of malignancy. 2. Recommend routine screening mammography in one year. BI-RADS Category 1: Negative Reviewed, dictated and finalized at location A. ITIAN ASSISTANT
== END ==
PROVIDERS: PCP Family Medicine Adolescent Medicine; Visit Provider Family Medicine Adolescent Medicine
DX: Z12.31 Encounter for screening mammogram for malignant neoplasm of breast (principal)
CPT/HCPCS: 77063; 77067

== ENCOUNTER 2023-05-03 13:55 | Outpatient (CLI) | payer OTHER, MEDICAID, SELFPAY ==
--- NOTE | ~2023-05-03 | XR_ITS ---
XR chest 2V DATE: 05/03/2023 14:12 INDICATION: Dyspnea TECHNIQUE: PA and lateral views COMPARISON: None FINDINGS: Normal heart size. Urinary artery stent. Aortic arch calcification. No hilar or mediastinal enlargement. No pulmonary infiltrate or consolidation, pleural effusion or pulmonary vascular congestion or pneumo thorax. Mild degenerative change of the thoracic spine. Surgical clips are noted overlying the upper abdomen on the lateral view, likely due to cholecystecto my. IMPRESSION: No active cardiopulmonary disease Coronary artery stent Aortic atherosclerosis No active pulmonary disease Probable cholecystectomy Reviewed, dictated and finalized at location A. EDICAL INSTRUMENT TECHNICIAN
== END 2023-05-03 13:56 | disposition home or self-care (01) ==
PROVIDERS: PCP Family Medicine Adolescent Medicine; Visit Provider Family Medicine Adolescent Medicine
DX: R06.00 Dyspnea, unspecified (principal); I70.0 Atherosclerosis of aorta
CPT/HCPCS: 71046

== ENCOUNTER 2023-05-16 14:15 | Outpatient (CLI) | payer OTHER, MEDICAID, SELFPAY ==
--- NOTE | 2023-05-21 08:48 | P.PCNPFT_ITS ---
PFT Procedure Performed PFT Procedure Performed Spirometry with Pre/Post Bronchodilator Plethysmography (Lung Vol) Diffusing Cap (DLCO) Flow Vol Loop PFT Interpretation DOS: 05/16/2023 REQUESTING: Dr. Amrik De Santiago REASON FOR TESTING: dyspnea PULMONARY FUNCTION TESTS Repeatability of spirometry FEV1 maneuver pre-bronchodilator and post- bronchodilator is Grade A. Spirometry: FEV1 is 1.3 L, 57%, moderately decreased. Pre bronchodilator FVC is 2.29 L, 73%, mildly reduced. FEV1/FVC is 60%, reduced, consistent with airflow obstruction. After bronchodilator there is a 1% increase in FEV1 and an 8% increase in the FVC, not statistically significant changes. Lung volumes: Total lung capacity is 5.4 over L, 100%, normal. Residual volume is 3.09 L, 137%, increased consistent with air trapping. RV/TLC is 57%, increased. Airway resistance is 7.01, 475%, increased. Diffusion: DLCO 14.1, 65%, mildly reduced. DLCO/VA is 3.93, 93%, normal. Flow volume loop: Mild coving in the expiratory limb. IMPRESSION: This study shows a moderate obstructive ventilatory impairment with air trapping, mild diffusion impairment that corrects for alveolar volume. Lack of response to bronchodilator should not preclude use of clinically indicated. In the proper clinical setting this study may be consistent with COPD. compared to the prior study 08/22/2017 there has been a significant drop in the FEV1. FEV1 was 1.96 L, 82% predicted, normal. The FVC was 2.75 L, 85%, normal. The FEV1/FVC was 71%, normal. Total lung capacity was 6.17 L, 117% normal. Air trapping was also present residual volume 3.42 L, 169%. Diffusion was similar. Amna Christianson MD
== END 2023-05-16 14:16 | disposition home or self-care (01) ==
LOC: ANHPFT 14:16
PROVIDERS: PCP Family Medicine Adolescent Medicine; Visit Provider Family Medicine Adolescent Medicine
DX: R06.00 Dyspnea, unspecified (principal); R94.2 Abnormal results of pulmonary function studies
CPT/HCPCS: 94060; 94726; 94729

== ENCOUNTER 2023-12-23 14:09 | Outpatient (CLI) | payer MEDICARE, MEDICAID, SELFPAY | END 2023-12-23 14:10 | disposition home or self-care (01) | LOC: CHSIMG 14:13 | PROVIDERS: PCP Family Medicine Adolescent Medicine; Visit Provider Family Medicine Adolescent Medicine | DX: Z78.0 Asymptomatic menopausal state (principal) | CPT/HCPCS: 99199 ==

== ENCOUNTER 2023-12-27 13:31 | Outpatient (CLI) | payer MEDICARE, MEDICAID, SELFPAY ==
--- NOTE | ~2023-12-27 | DEXA_ITS ---
Bone Density Report Name: DAMARIS SCHMIDT Age: 68 Sex: Female Ethnicity: White Date of : 1955 Indication: postmenopausal; screening for osteoporosis; height loss; prior fracture; hysterectomy; Referring Provider: ERICH BONDS Study: Bone densitometry was performed. Exam Date: December 27, 2023 Accession number: [id number] Bone Density: Region BMD T-score Z-score Classification AP Spine(L1-L4) 0.907 -1.3 0.8 Osteopenia Femoral Neck (Left) 0.665 -1.7 0.1 Osteopenia Total Hip (Left) 0.740 -1.7 -0.2 Osteopenia Femoral Neck (Right) 0.662 -1.7 0.1 Osteopenia Total Hip (Right) 0.822 -1.0 0.5 Normal Femoral Neck Mean 0.664 -1.7 0.1 Osteopenia Total Hip Mean 0.781 -1.3 0.1 Osteopenia World Health Organization criteria for BMD impression classify patients as: Normal (T-score at or above -1.0), Osteopenia (T-score between -1.0 and -2.5), or Osteoporosis (T-score at or below -2.5). 10-year Fracture Risk(1): Major Osteoporotic Fracture 15% Hip Fracture 2.0% Reported Risk Factors: [place] (), Neck BMD=0.662, BMI=35.1, previous fracture (1) FRAX(R) Version 3.08. Fracture probability calculated for an untreated patient. Fracture probability may be lower if the patient has received treatment. Clinical Information Provided by Patient: Has had a low trauma fracture Has used the following medications: Fosamax (i.e. alendronate), Vitamin D, Calcium, multi Has the following medical conditions: Hysterectomy Patient maximum height was 66 Menopause Age: 38 No regular weight bearing exercise Drinks caffeinated beverages Onset of menses at age 13 Number of children 2 Impression: The patient has low bone mass, based on the Left Total Hip T-score. The patient has risk factors, including: previous fracture. Discussion: BONE DENSITY IS LOW AT ONE OR MORE SKELETAL SITES. This patient's lowest T-score is low at one or more skeletal sites. It meets the World Health Organization's (WHO) criteria for ?low bone mass? (T-score between -1.0 and -2.5). The patient's 10-year risk of fracture as calculated by FRAX is less than the threshold where pharmacological therapy is recommended by the National Osteoporosis Foundation (NOF). However, all treatment decisions require clinical judgment and consideration of individual patient factors, including patient preferences, comorbidities, previous drug use, risk factors not captured in the FRAX model (e.g., frailty, falls, vitamin D deficiency, increased bone turnover, interval significant decline in bone density) and possible under or overestimation of fracture risk by FRAX. The patient should follow a healthful lifestyle (good nutrition with adequate calcium and vitamin D, and appropriate weight-bearing exercise). Follow-Up:
== END 2023-12-27 13:32 | disposition home or self-care (01) ==
LOC: CHSIMG 13:32
PROVIDERS: PCP Family Medicine Adolescent Medicine; Visit Provider Family Medicine Adolescent Medicine
DX: Z78.0 Asymptomatic menopausal state (principal); M85.89 Other specified disorders of bone density and structure, multiple sites
CPT/HCPCS: 77080

== ENCOUNTER 2024-04-22 12:44 | Outpatient (CLI) | payer MEDICARE, MEDICAID, SELFPAY ==
--- NOTE | ~2024-04-22 | MM_ITS ---
EXAMINATION: MM screening [facility] BI w michelle HISTORY: Screening mammogram TECHNIQUE: Craniocaudal and mediolateral oblique 3-D tomosynthesis images were obtained and synthetic 2-D images were generated. CAD analysis was submitted and interpreted. COMPARISON: 04/16/2023, 12/22/2020, 12/15/2018 BREAST PARENCHYMAL COMPOSITION:Not Dense. There are scattered areas of fibroglandular density. FINDINGS: No suspicious mass, calcification, or architectural distortion are identified in either omar ast to suggest malignancy. There has been no suspicious interval change. IMPRESSION: No mammographic evidence of malignancy. Recommend routine screening mammography in one year. BI-RADS Category 1: Negative Reviewed, dictated and finalized at location . ING HAND
== END 2024-04-22 12:45 | disposition home or self-care (01) ==
LOC: CHSIMG 12:48
PROVIDERS: PCP Family Medicine Adolescent Medicine; Visit Provider Family Medicine Adolescent Medicine
DX: Z12.31 Encounter for screening mammogram for malignant neoplasm of breast (principal)
CPT/HCPCS: 77063; 77067

== ENCOUNTER 2024-09-04 15:38 | Outpatient (CLI) | payer MEDICARE, MEDICAID, SELFPAY ==
--- NOTE | ~2024-09-04 | XR_ITS ---
XR wrist RT min 3V 09/04/2024 15:54 Indication: Right wrist pain Procedure: 3 views right wrist Comparison: No prior studies for comparison. Findings: There is mild polyarticular osteoarthritis, most advanced at the triscaphe, first carpometa carpal and MCP joints. Osteopenia. Mild widening of the scapholunate distance. No acute fracture or t raumatic malalignment. Impression: 1: Mild polyarticular osteoarthritis. Reviewed, dictated and finalized at location A. Impression: 1: Mild polyarticular osteoarthritis.
--- OUTSIDE RECORDS SUMMARY | 2024-09-04 15:42 | XMS_ITS ---
Author Organization [facility] [employer] Address [address] [facility] [address] [place] [address] Care Team Providers Care Summer Law Associate Name Role Phone Anyi RODRIGUEZ, Amrik Primary Care Provider Donna Yessenia Garcia Unavailable [phone] Pau Corona Unavailable [phone] Allergies Allergen (clinical drug ingredient) Drug/Non Drug Allergy documented on EMR Reaction Allergy Type Onset Date Status ADHESIVE TAPE (uncoded) Unknown Allergy 05/23/2023 Active meperidine Demerol Unknown Drug Allergy 05/23/2023 Activ e phenobarbital PHENobarbital Unknown Drug Allergy 3 Active Tetanus Toxoids Unknown Drug Allergy 05/23/2023 Active REASON FOR VISIT anxiety, depression, trauma Medications Medication SIG (Take, Route, Frequency, Duration) Notes Start Date End Date Status Colesevelam HCl 625 mg ORAL 09/24/2023 Unknown Glimepiride 2 MG Oral 09/24/2023 Un known Prochlorperazine Maleate 10 MG Oral 09/24/2023 Unknown Losartan Potassium 50 MG Oral 09/24/2023 Unknown Breztri Aerosphere 160-9-4.8 MCG/ACT Inhalation *Reorder from [facility] for eRx and Interaction Alerts* 09/24/2023 Unknown Metoclopramide HCl 10 MG Oral 09/24/2023 Unknown Contour Blood Glucose System w/Device In Vitro 09/24/2023 Unknown metFORMIN HCl 500 MG Oral 09/24/2023 Unknown lamoTRIgine 200 MG 1 tablet at bedtime Oral Once a day for 30 days Active lamoTRIgine 100 MG 1.5 tablet Oral once a day for 30 days in the morning dose increase Active Escitalopram Oxalate 20 MG 1 tablet Oral Once a day for 30 days Active ARIPiprazole 5 MG 1 tablet Oral Once a day for 30 days Active buPROPion HCl ER (XL) 300 MG 1 tablet every morning Oral Once a day for 30 days Active lamoTRIgine 100 MG 1 tablet Oral once a day for 30 days Active lamoTRIgine 200 MG 1 tablet at bedtime Oral Once a day for 30 days Active Atorvastatin Calcium 20 MG Oral 09/24/2023 Unknown rOPINIRole HCl 2 MG Oral 09/24/2023 Active Nitroglycerin 0.4 MG Sublingual 09/24/2023 Unknown Gabapentin 800 MG Oral 09/24/2023 U nknown Propranolol HCl ER 160 MG Oral 09/24/2023 Unknown Morphine Sulfate ER 60 MG Oral 09/24/2023 Unknown Brilinta 60 mg Oral 09/24/2023 Unkn own DEXLANSOPRAZOLE 60 MG CAPSULE,BIPHASE DELAYED RELEASE *Reorder from [facility] for eRx and Interaction Alerts* 09/24/2023 Unknown Januvia 100 MG Oral 09/24/2023 Unkn own Nadolol 20 MG Oral 09/24/2023 Unkno wn Isosorbide Mononitrate ER 30 MG Oral 09/24/2023 Unknown Budesonide 0.5 MG/2ML Inhalation 09/24/2023 Unknown Vascepa 1 GM Oral 09/24/2023 Unknow n Movantik 25 MG Oral 09/24/2023 Unkn own Social History Tobacco Use: Social History Observation Description Date Details (start date - stop date) Former Smoker NA - 05/20/2024 Sex Assigned At : Social History Observation Description Sex Assigned At Female Tobacco Control (Standard) Question Answer Notes Tobacco use: Former smoker When did you stop smoking? 05/20/2024 How long has it been since you last smoked? Marysol ter than 10 years Encounters Encounter Location Date Provider Diagnosis [facility] [email or web address] [facility] [address] [facility] [address] [address] 08/06/2024 Pau Corona Major depressive disorder, recurrent severe without psychotic features F33.2 ; Generalized anxiety disorder F41.1 and Chronic posttraumatic stress disorder F43.12 Assessments Encounter Date Diagnosis (ICD Code) Assessment Notes Treatment Notes Treatment Clinical Notes Section Notes 08/06/2024 Major depressive disorder, recurrent severe without psychotic features (ICD-10 - F33.2) 08/06/2024 Generalized anxiety disorder (ICD-10 - F41.1) 08/06/2024 Chronic posttraumatic stress disorder (ICD-10 - F43.12) 08/06/2024 Other Client reports her grandson is getting in October. She called her daughter to find out the exact date and location of the wedding because her grandson is answering her calls. Daughter told client that the grandson did not want her there. When pressed by client about the 'why' the daughter said it's because of the way you treated me. Client is tearful off and on while describing this. Client reports daughter hung up on her then granddaughter called and read me the riot act. Granddaughter then texted client and said if client apologized, granddaughter will be willing to have a relationship with client. (Back story: daughter often kept client away from grandson and granddaughter). Therapist actively listened to client and utilized a cognitive behavioral intervention to help client explore strategies to take care of her mental health while working through this issue with her family. Plan Of Treatment Next Appt Details Follow Up: 2 Weeks, Reason: therapy follow up Provider Name:Pau Corona , 09/17/2024 11:00:00 AM, [address], [address], [address], Provider Name:Pau Corona , 10/01/2024 11:00:00 AM, [employer], [address], [address], Provider Name:Yessenia Snow, 10/01/2024 01:45:00 PM, [address], [address], [address], Provider Name:Pau Corona , 10/15/2024 11:00:00 AM, [address], [address], [address], Progress Notes * JAZZY SCHMIDT:[birth year] (68 yo F)Acc No.[id number]:08/06/2024 Patient: DAMARIS CARR Provider: Melissa CORONA LCSW :1955 A ge:68 Y S ex:Female Date:08/06/2024 Address:[address] [place] [address] [facility] [address] Pcp:Amrik De Santiago MD Check In:03:50 PM CSTCheck O ut:04:02 PM EMT B Data: * Time Tracker: * Date Start Time End Time Duration User Type Captured By Mode Notes 08/06/2024 03:07 PM 04:02 PM 00:55:00 Therapist Pau Coronaual * Chief Complaints: * 1 . Anxiety. 2. Depression. 3. Trauma. * HPI: F unctional Status: Client is here today for psychotherapy to treat anxiety, depression, and trauma issues. Based on our session, I think the patient is making moderate progress. At this time I do not recommend changes to the treatment plan. I do not think the patient poses significant risk of harm to self or others at this time. Discussed continued treatment with patient. The patient was seen today for Tele visit. [place]patient is seen at HOME Pt is seen at other than [facility] the session was conducted via a HIPAA-compliance audio/visual platform. * Behavioral History: P ast psychiatric Hospitalization:Yes. W hen and where was the last admission?:late . H istory of suicidal attempt?:Yes. T ype of previous suicidal attempt:Overdose. * Medical History: P roblems: Chronic post-traumatic stress disorder, Coronary arteriosclerosis, Fibromyalgia, Gastroesophageal reflux disease, Generalized anxiety disorder, Severe recurrent major depression without psychotic features, Type 2 diabetes mellitus, Urinary tract infectious disease, ,. * Surgical History: R emoval of gallbladder (20066) , Cardiac stent , Hysterectomy/revise vagina (50621) , Removal of ovary(s) (29525) , Other , Tonsilectomy/adenoids , Any surgical history , Total replacement of left knee joint (410134087) , Tonsilectomy/adenoids 06/10/1958, Tonsilectomy/adenoids 06/10/1960, Other 07/04/2017, Cardiac stent 07/04/2017, Hysterectomy (42214) 10/29/1987, Cardiac stent 03/23/2022. * Family History: F ather: Depressive disorder , Morbid obesity . M aternal Uncle: Diabetes mellitus . M other: Diabetes mellitus , Family history of cancer . P aternal Grandmother: Family history of sudden cardiac . M aternal Grandfather: Alcohol abuse , Diabetes mellitus . B rother: Schizophrenia . D bárbara: Bipolar disorder . * Social History: T obacco Use: T obacco Control (Standard) T obacco use: F ormer smoker, W hen did you stop smoking? 1 07/21/2023, H ow long has it been since you last smoked? G reater than 10 years.? M igrated Social History: M igrated Social History: Alcohol Intake: Occasional 12/21/2019,Tobacco Years: Former smoker 12/21/2019. M iscellaneous: A dvance Care Planning A re you your own decision-maker Y es, D o you have Power of Fire Crew Specialist for Health or Medical? Y es, D o you have a power of real estate attorney for health? Y es, D o you have power of real estate attorney for Medical ? Y es, I f yes, then please bring the POA paperwork so that we can upload it. N o. * Medications: T aking rOPINIRole HCl 2 MG Tablet Oral , Taking lamoTRIgine 100 MG Tablet 1 tablet Oral once a day , Taking lamoTRIgine 200 MG Tablet 1 tablet at bedtime Oral Once a day , Taking ARIPiprazole 5 MG Tablet 1 tablet Oral Once a day , Taking buPROPion HCl ER (XL) 300 MG Tablet Extended Release 24 Hour 1 tablet every morning Oral Once a day , Taking Escitalopram Oxalate 20 MG Tablet 1 tablet Oral Once a day , Taking lamoTRIgine 200 MG Tablet 1 tablet at bedtime Oral Once a day , Taking lamoTRIgine 100 MG Tablet 1.5 tablet Oral once a day in the morning, Notes to Pharmacist: dose increase, Unknown Contour Blood Glucose System w/Device Kit In Vitro , Unknown metFORMIN HCl 500 MG Tablet Oral , Unknown Metoclopramide HCl 10 MG Tablet Oral , Unknown Breztri Aerosphere 160-9-4.8 MCG/ACT Aerosol Inhalation , Notes to Pharmacist: *Reorder from [facility] for eRx and Interaction Alerts*, Unknown Prochlorperazine Maleate 10 MG Tablet Oral , Unknown Losartan Potassium 50 MG Tablet Oral , Unknown Colesevelam HCl 625 mg TABLET ORAL , Unknown Glimepiride 2 MG Tablet Oral , Unknown Movantik 25 MG Tablet Oral , Unknown Budesonide 0.5 MG/2ML Suspension Inhalation , Unknown Vascepa 1 GM Capsule Oral , Unknown Isosorbide Mononitrate ER 30 MG Tablet Extended Release 24 Hour Oral , Unknown Nadolol 20 MG Tablet Oral , Unknown DEXLANSOPRAZOLE 60 MG CAPSULE,BIPHASE DELAYED RELEASE , Notes to Pharmacist: *Reorder from [facility] for eRx and Interaction Alerts*, Unknown Januvia 100 MG Tablet Oral , Unknown Morphine Sulfate ER 60 MG Tablet Extended Release Oral , Unknown Brilinta 60 mg Tablet Oral , Unknown Atorvastatin Calcium 20 MG Tablet Oral , Unknown Nitroglycerin 0.4 MG Tablet Sublingual Sublingual , Unknown Propranolol HCl ER 160 MG Capsule Extended Release 24 Hour Oral , Unknown Gabapentin 800 MG Tablet Oral , Medication List reviewed and reconciled with the patient * Allergies: A DHESIVE TAPE: Allergy - Onset Date 05/23/2023, Demerol: Allergy - Onset Date 05/23/2023, PHENobarbital: Allergy - Onset Date 05/23/2023, Tetanus Toxoids: Allergy - Onset Date 05/23/2023. * Vitals: * Examination: P sychiatry: C lient is casually groomed and oriented X 3. Assessment: * Assessment: 1. M ajor depressive disorder, recurrent severe without psychotic features - F33.2 (Primary)? 2. G eneralized anxiety disorder - F41.1 3 . C hronic posttraumatic stress disorder - F43.12 Plan: * Treatment: * Procedure Codes: 9 0837 PSYCHOTHERAPY W/PATIENT 60 MINUTES, Units: 2.00 , Modifiers: 95 * Follow Up: 2 Weeks (Reason: therapy follow up) * Billing Information: * Visit Code: * Procedure Codes: 91065 PSYCHOTHERAPY W/PATIENT 60 MINUTES. Units: 2.00. Modifiers: 95 * B Sign off status: Completed Signatures: No Ad Hoc Signature Added true * Provider: Melissa CORONA LCSW Date: 0 08/06/2024 Generated for Megan hardin/Everett/Anaissmitting on: 0 09/04/2024 03:42 PM CDT History and Physical Notes * Examination Category Sub-Category Detail Notes Category Not es Psychiatry Client is veto lly groomed and oriented X 3
--- OUTSIDE RECORDS SUMMARY | 2024-09-04 15:42 | XMS_ITS ---
Author Organization [facility] [employer] [facility] Address [address] [facility] [address] [facility] [address] [place] [address] Care Team Providers Care Intervention Analyst Name Role Phone Anyi RODRIGUEZ, Amrik Primary Care Provider Donna Yessenia Garcia Unavailable [phone] REASON FOR VISIT lamoTRIgine Medications Medication SIG (Take, Route, Fr equency, Duration) Notes Start Date End Date Status lamoTRIgine 150 MG 1 tablet Oral once a day for 30 days Active Social History Sex Assigned At : Social History Observation Description Sex Assigned At Female Encounters Encounter Location Date Provider Diagnosis [facility] [employer] [facility] [address] [facility] [address] [address] 08/10/2024 Yessenia Snow Major depressive disorder, recurrent severe without psychotic features F33.2 Assessments Encounter Date Diagnosis (ICD Code) Assessment Notes Treatment Notes Treatment Clinical Notes Section Notes 08/10/2024 Major depressive disorder, recurrent severe without psychotic features (ICD-10 - F33.2) Plan Of Treatment Medication Medication Name Sig Start Date Stop Date Notes lamoTRIgine 150 MG 1 tablet Oral once a day for 30 days Next Appt Details Provider Name:Pau Corona , 09/17/2024 11:00:00 AM, [address], [address], [address], Provider Name:Pau Corona , 10/01/2024 11:00:00 AM, [address], [facility] [address], [place], [address], Provider Name:Yessenia Cochranag, 10/01/2024 01:45:00 PM, [address], [facility] [address], [place], [address], Provider Name:Pau Corona , 10/15/2024 11:00:00 AM, [address], [facility] [address], [place], [address], Progress Notes * DAMARIS SCHMIDTDOB:[birth year] (68 yo F)Acc No.[id number]:08/10/2024 Patient: BONNIE CARRETTE :1955 A ge:68 Y S ex:Female Address:[address] [place] [address], [facility] [address] * Refills Refill lamoTRIgine Tablet, 150 MG, Oral, 30, 1 tablet, once a day, 30 days, Refills=0 * true * Date: Generated for Megan hardin/Everett/Anaissmitting on: 0 09/04/2024 03:42 PM CDT
--- OUTSIDE RECORDS SUMMARY | 2024-09-04 15:42 | XMS_ITS | Clinical Summary ---
Author Organization [facility] Healthcare Address [address] [place] [address] Care Team Providers Care Ointment Mill Tender Name Role Phone Amrik De Santiago MD Primary Care Prov ider Allergies Active Allergy Reactions Criticality Noted Date Comments Adhesive Tape-Silicones Rash Medium Meperidine Nausea only,Vomiting Low Nickel Other (See comments) Low Turns skin green Phenobarbital Mental status changes Low Tetanus Vaccines And Toxoid Headache Low Medications gabapentin (NEURONTIN) 800 mg tablet Take 1 tablet (800 mg total) by mouth 4 (four) times a day Active atorvastatin (LIPITOR) 20 mg tablet Take 1 tablet (20 mg total) by mouth daily Active morphine ER (AVINza) 60 mg 24 hr capsule Take 1 capsule (60 mg total) by mouth 2 (two) times a day Active rOPINIRole (REQUIP) 1 mg tablet Take 3 tablets (3 mg total) by mouth daily Active escitalopram (LEXAPRO) 20 mg tablet Take 1 tablet (20 mg total) by mouth daily Active lamoTRIgine (LaMICtal) 200 mg tablet Take 1 tablet (200 mg total) by mouth daily Active HYDROcodone-ac etaminophen (NORCO) 10-325 mg per tabletIndicati ons:Pain Take 1 tablet by mouth every 6 (six) hours as needed for pain Active meclizine (ANTIVERT) 25 mg tablet Take 1 tablet (25 mg total) by mouth 3 (three) times a day as needed for dizziness Active psyllium 0.52 gram capsule Take 1 capsule (0.52 g total) by mouth daily Active calcium carbonate-dae min D3 1,250mg (500mg elemental) - 200 units per tablet Take 1 tablet by mouth daily Active multivitamin-C l-sljc-ltfesal s tablet Take 1 tablet by mouth daily Active cranberry conc-ascorbic acid 4,200-20 mg capsule Take 1 capsule by mouth daily Active potassium 99 mg tablet Take 1 tablet (99 mg total) by mouth daily Active magnesium oxide (MAG-OX) 250 mg (150.8 mg elemental) tabletIndicati ons:hypomagnes emia Take 1 tablet (250 mg total) by mouth daily Active aspirin 81 mg tablet Take 1 tablet (81 mg total) by mouth daily. 90 tablet 3 018 Active oxybutynin XL (DITROPAN XL) 15 mg 24 hr tablet Take 10 mg by mouth daily Active metFORMIN (GLUCOPHAGE) 500 mg tablet Take 1 tablet (500 mg total) by mouth 2 (two) times a day with meals Active metoclopramide (REGLAN) 10 mg tablet Take 1 tablet (10 mg total) by mouth daily Active nystatin powder Apply 1 application topically daily as needed Active zinc 50 mg tablet Take 1 Caplet by mouth daily Active glimepiride (AMARYL) 1 mg tabletIndicati ons:type 2 diabetes mellitus Take 2 tablets (2 mg total) by mouth daily 0 018 Active dexlansoprazol e (DEXILANT) 60 mg capsule Take 1 capsule (60 mg total) by mouth daily. 1 capsule 019 Active buPROPion XL (WELLBUTRIN XL) 150 mg 24 hr tablet Take 2 tablets (300 mg total) by mouth daily Active Movantik 25 mg tablet Take 1 tablet (25 mg total) by mouth daily before breakfast 021 Active prochlorperazi ne (COMPAZINE) 10 mg tablet Take 1 tablet (10 mg total) by mouth every 6 (six) hours as needed for nausea Active propranolol LA (INDERAL LA) 160 mg 24 hr capsule Take 1 capsule (160 mg total) by mouth daily 022 Active furosemide (LASIX) 20 mg tablet TAKE 1 TABLET (20 MG TOTAL) BY MOUTH DAILY NEEDED (SWELLING) 30 tablet 022 2025 Active loratadine (CLARITIN) 10 mg tablet Take 1 tablet (10 mg total) by mouth daily Active docusate sodium (COLACE) 100 mg capsuleIndicat ions:constipat ion Take 1 capsule (100 mg total) by mouth 2 (two) times a day Active naloxone (NARCAN) 4 mg/actuation spray,non-aero ash Administer 1 spray into affected nostril(s) daily as needed Active ARIPiprazole (ABILIFY) 5 mg tablet Take 0.5 tablets (2.5 mg total) by mouth daily Pt taking 2.5 mg Active ferrous sulfate ER 324 mg (65 mg iron) EC tabletIndicati ons:Iron Deficiency Anemia Take 65 mg by mouth every other day Active losartan (COZAAR) 50 mg tablet Take 1 tablet (50 mg total) by mouth daily Active Breztri Aerosphere 160-9-4.8 mcg/actuation HFA aerosol inhaler Active Mounjaro 5 mg/0.5 mL pen injector INJECT 5 MG (0.5 ML) SUBCUTANEOUSLY WEEKLY 024 Active colesevelam (WELCHOL) 625 mg tablet Take 1 tablet (625 mg total) by mouth 2 (two) times a day with meals Active nitroglycerin (NITROSTAT) 0.4 mg SL tabletIndicati ons:Coronary artery disease of [place] artery of [place] heart with stable angina pectoris Place 1 tablet (0.4 mg total) under the tongue every 5 (five) minutes as needed for chest pain May use up to 3 doses, call ambulance with 3rd dose 25 tablet 2 Active isosorbide mononitrate ER (IMDUR) 30 mg 24 hr tabletIndicati ons:Coronary artery disease of [place] artery of [place] heart with stable angina pectoris Take 1 tablet (30 mg total) by mouth daily 90 tablet 2 024 2024 Active clopidogreL (PLAVIX) 75 mg tablet Take 1 tablet (75 mg total) by mouth daily Active Vascepa 1 gram capsule Take 2 Capsules (2 Grams) by mouth 2 times daily. 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 07/26/2017 Pulmonary HTN 07/26/2017 Diabetes mellitus type II, non insulin dependent 07/02/2017 Abnormal stress test 07/02/2017 Essential hypertension 07/02/2017 Hyperlipidemia LDL goal <70 07/02/2017 Hyperlipidemia associated with type 2 diabetes m ellitus 07/02/2017 Hypertension associated with diabetes 07/02/2017 Fibromyalgia 07/02/2017 Recurrent major depressive disorder, in partial remission 07/02/2017 Lipoma 10/24/2013 Overview (09/15/2016): LIPOMA NOS Encounters Date Type Department Care Team Description 08/05/2024 3:00 PM DICTAPHONE TYPIST Office Visit [facility] Cardiology at [address] [place] [address] Bay Shook MD Hyperlipidemia associated with type 2 diabetes mellitus (HCC) (Primary Dx); Coronary artery disease of [place] artery of [place] heart with stable angina pectoris; Hypertension associated with diabetes (HCC); Non-rheumatic aortic stenosis; Pulmonary HTN (HCC) 08/04/2024 Telephone [facility] Cardiology [address] [place] [address] Bay Shook MD from Last 3 Months Surgical History Surgery Date Site/Laterality Comments HYSTERECTOMY Partial/Cervical 1987, ~1994 tubes and ovaries Hysterectomy OTHER SURGICAL HISTORY D&C KNEE ARTHROPLASTY Left Knee replacement CHOLECYSTECTOMY 7-10 years ago, have to check Cholecystectomy OTHER SURGICAL HISTORY 2006 excision right back mass 05/16 OTHER SURGICAL HISTORY cyst removed from ovary 1976 TONSILLECTOMY tonsillectomy OTHER SURGICAL HISTORY repairnovry torn cyst OTHER SURGICAL HISTORY D & C ARTHROSCOPIC SURGERY arthroscopic repair OTHER SURGICAL HISTORY partial vaginal hysterectomy OTHER SURGICAL HISTORY ablation abdominal scar tissue OTHER SURGICAL HISTORY total R knee repalcement OOPHORECTOMY ovaries removed OTHER SURGICAL HISTORY R knee scar tissue CORONARY ANGIOPLASTY WITH STENT PLACEMENT KNEE ARTHROSCOPY W/ LATERAL RELEASE June 1986 JOINT REPLACEMENT Right knee replacement November 22, 2000 TUBAL LIGATION 1985 Medical History Medical History Date Comments Hx Other Medical Cervical spine pain Depression Severe Major, recurr ent 1993 to Present Depression Arthritis 1986 ongoing Arthritis Hx Other Medical DVT Hypertension Late early Hypertension Abnormal stress test GERD (gastroesophageal reflu x disease) ~1989 Irritable bowel syndrome Type 2 diabetes mellitus (HCC) Anxiety 1993 to Present Major depressive disorder, recurrent Delayed emergence from gener al anesthesia Awareness under anesthesia Coronary artery disease Shortness of breath Asthma Migraines 1971 Since 2013, add ing OTC magnesium reduced Family History Medical History Relation Name Comments Mental illness Brother 1 Vladislav Mariee Mental illness Brother 2 Vladislav Mariee Learning disabilities Daughter 1 [place] Ka y [facility] D[facility] 2 [facility] Arthritis Father Abdon Mariee Depression Father Abdon Mariee Depressio n; Heart disease Father Abdon Mariee Hypertension Father Abdon Mariee Hypertens ion; Mental illness Father Abdon Mariee Obesity Father Abdon Mariee Stroke Father Abdon Mariee Stroke; Arthritis Father's Sister 1 Willola D. Tra band Michel Arthritis Father's Sister 2 Willola D. Tra band Michel Alcohol abuse Maternal Grandfather Chad Marie Alzheimer's disease Maternal Grandfather Chad Marie Diabetes Maternal Grandfather Chad Marie Heart attack Maternal Grandmother Fredy Brandonfer Heart disease Maternal Grandmother Fredy Connors Yasemin Hypertension Maternal Grandmother Fredy Connors Yasemin Memory loss Maternal Grandmother Fredy Connors Yasemin Cancer Mother Marian Marie Traband Diabetes Mother Marian RobertoBarbie Frank Trabherman Diabetes mellitus; Heart disease Mother Marian RobertoBarbie Frank Traband Hyperlipidemia Mother Marian L. Marie Traband Hypertension Mother Marian MejiaBarbie Frank Traband Hypertension; Mental illness Mother Marian L. Marie Traband Pancreatic cancer Mother Marian Sorenson Cancer, pancreas; /Cancer, pancreas; Cause of : Cancer, pancreas Alcohol abuse Mother's Brother 1 Chad Marie Diabetes Mother's Brother 1 Chad JrBarbie Marie Alcohol abuse Mother's Brother 2 Chad Marie Diabetes Mother's Brother 2 Chad Marie Heart disease Other 1 Family history of Heart disease; Other Other 2 No family histo ry of Cancer, colon; Other Other 3 No family histo ry of Colitis; Other Other 4 No family histo ry of Colon polyps; Other Other 5 No family histo ry of Crohn's disease; Other Other 6 No family histo ry of Peptic ulcer disease; Other Other 7 No family histo ry of Ulcerative colitis; Hypertension Paternal Grandfather Abdon lomeli, Paternal Grandfather Arthritis Paternal Grandmother Monse Hazel Heart disease Paternal Grandmother Monse Hazel Hypertension Paternal Grandmother Monse Hazel Learning disabilities Paternal Grandmother Monse Hazel Miscarriages / Stillbirths Sister 1 Mariah Nelson Miscarriages / Stillbirths Sister 2 Mariah Nelson Relation Name Status Comments Brother 1 Vladislav Butter[place] Georgiherman Brother 2 Vladislav [place] Kodi Alive Daughter 1 Wanda Kay Gutierrezthong [facility] Summi t Daughter 2 [place] Rosemary. Vera [place] Alive Father Abdon Laureanoherman Father's Sister 1 Flaco MelissaBarbie Kodi Michel Father's Sister 2 Flaco Michel Alive Maternal Grandfather Chad Marie Alive Maternal Grandmother Fredy Frank Hazel Aliv e Mother Marian Mariee Mother's Brother 1 Chad Marie Mother's Brother 2 Chad Marie Alive Other 1 Other 2 Other 3 Other 4 Other 5 Other 6 Other 7 Paternal Grandfather Abdon Mariee, Paternal Grand father Paternal Grandmother Monsemazin Hazel Sister 1 Mariah Greer Nelson Sister 2 Mariah Nelson Alive Social History Tobacco Use Types Packs/Day Years Used Date Smoking Tobacco: Former Cigarettes 1 21.3 0 11/08/1976 - 03/14/1998 Smokeless Tobacco: Never Tobacco Cessation:Counseling Given: Not Answered Alcohol Use Standard Drinks/Week Comments Yes 0 (1 standard drink = 0.6 oz pur e alcohol) occassion Comments No Sex and Gender Information Value Date Recorded Sex Assigned at Not on file Legal Sex Female 2:43 PM DICTAPHONE TYPIST Gender Identity Female 11/21/2018 6:34 PM CDT Sexual Orientation Straight 11/21/2018 6: 34 PM CDT Obstetrics History Last Filed Vital Signs Vital Sign Reading Time Taken Comments Blood Pressure 124/82 08/05/2024 3:17 PM DICTAPHONE TYPIST Pulse 72 08/05/2024 3:17 PM DICTAPHONE TYPIST Temperature 36.6 C (97.9 F) 03/23/2022 6:54 AM CDT Respiratory Rate 20 03/23/2022 6:54 AM CDT Oxygen Saturation 90% 08/05/2024 3:17 PM DICTAPHONE TYPIST Inhaled Oxygen Concentration - - Weight 96.6 kg (213 lb) 08/05/2024 3:17 PM DICTAPHONE TYPIST Height 167.6 cm (5' 6 ) 08/05/2024 3:17 PM DICTAPHONE TYPIST Body Mass Index 34.38 08/05/2024 3:17 PM DICTAPHONE TYPIST Plan of Treatment Health Maintenance Due Date Last Done Comments Albumin Creatinine Ratio, Urine 1954 Breast Cancer Screening-Mammogram 1954 Depression Screening 1954 Hepatitis C Screening 1954 Osteoporosis Screening-Bone Density Scan 1954 Dilated Eye Exam 1954 Foot Exam 1954 DTaP/Tdap/Td Vaccine (1 - Tdap) 1965 Hepatitis B Screening 1972 Pneumococcal vaccine 65+ (1 of 2 - PCV) 1973 Zoster Vaccine (1 of 2) 2004 Hemoglobin A1C 09/13/2018 03/15/2018 Well Visit 65+ 12/17/2019 Colon Cancer Screening-Colonoscopy 11/07/2022 11/07/2012 eGFR 03/19/2023 03/19/2022, 1011/2017, 08/02/2017, Additional history exists Fall Risk Assessment 03/23/2023 03/23/2022 Influenza Vaccine (#1) 2024 03/29/2019, 2014 Lipid Panel 08/05/2025 08/05/2024, 07/12, 01/11/2023, Additional history exists Colon Cancer Screening-CT Colonography Discontinued 11/07/2012 Colon Cancer Screening-DNA Stool Discontinued 11/08/19 13 Colon Cancer Screening-FIT Discontinued 11/07/2012 Colon Cancer Screening-Sigmoidoscopy Discontinued 11/07/2012 Medical Devices Implanted Type Area Lead Etl Developer Device Identifier Shelf Expiration Date Model / Serial / Lot System Coronary Stent Synergy Pebax Everolimus Eluting [place] Chromium Plga L24 Mm L144 Cm Od2.75 Mm Radiopaque 1 Access Port Inflation Lumen Accepts .014 In Guidewire - [id number] Implanted:Qty: 1 on 07/04/2017 by Nathan Rivera MD at [facility] Adaptive TCR Kendrick 02/13/2018 [id number] / / [id number] [employer]tr[employer] [facility] Vas Surgery 3.0 X 12mm [place] Rx Coronary Stent [id number] - [id number] Implanted:Qty: 1 on 03/23/2022 by Nathan Rivera MD at [facility] Medtronic Card Vasc Surgery 11/06/2023 [id number] / / [id number] Closure Inc Mynx Control 6-7fr 2 Mode Balloon Catheter Sealant Lock Syringe [id number] - [id number] Implanted:Qty: 1 on 03/23/2022 by Nathan Rivera MD at [facility] [employer] 02/08/2024 [id number] / / [id number] Procedures Procedure Name Priority Date/Time Associated Diagnosis Comments POCT LIPID PANEL Routine 08/05/2024 3:13 PM DICTAPHONE TYPIST Hyperlipidemia associated with type 2 diabetes mellitus (HCC) BASIC METABOLIC PANEL Routine 03/19/2022 10:26 AM CDT Pre-procedure lab exam Coronary artery disease of [place] artery of [place] heart with stable angina pectoris HEMOGLOBIN A1C Routine 03/15/2018 9:54 AM CDT COLONOSCOPY REPORT 11/07/2012 from Last 3 Months or Most Recently Relevant to Health Maintenance Results * POCT lipid panel (08/05/2024 3:13 PM DICTAPHONE TYPIST) Cholesterol, POC 144 mg/dL HDL, POC 45 mg/dL Triglycerides, POC 143 mg/dL LDL Cholesterol POC 70 mg/dL Chol/HDL Ratio, POC 3.2 Non-HDL Cholesterol, POC 98 mg/dL Cholesterol Total, POC 144 mg/dL Capillary blood 08/05/2024 3 :13 PM DICTAPHONE TYPIST Bay Shook MD POINT OF CARE TEST ORDERA BLES Final Result * (ABNORMAL) Basic metabolic panel (03/19/2022 10:26 AM CDT) Glucose 166(H) 65 - 139 mg/dL [facility] Comment: Non-fasting reference interval BUN 10 7 - 25 mg/dL [facility] Creatinine 0.88 0.50 - 1.05 mg/dL [facility] eGFR 72 > OR = 60 mL/min/1. 73m2 [facility] Comment: The eGFR is based on the CKD-EPI 2020 equation. To calculate the new eGFR from a previous Creatinine or Cystatin C result, go to https://www.kidney.org/professionals/ kdoqi/gfr%5Fcalculator BUN/creat ratio NOT APPLICABLE 6 - 22 (calc) [facility] Sodium 135 135 - 146 mmol/L [facility] Potassium, pl 4.3 3.5 - 5.3 mmol/L [facility] Chloride 96(L) 98 - 110 mmol/L [facility] CO2 32 20 - 32 mmol/L [facility] Calcium 8.9 8.6 - 10.4 mg/dL [facility] Blood 03/19/2022 10:2 6 AM CDT 03/19/2022 10:27 AM CDT Narrative [facility] - 03/20/2022 5:23 AM CDT FASTING:NO FASTING: NO Nathan Rivera MD LAB BLOOD ORDERABLES Final Resul t [facility] [id number] [place] [id number] * (ABNORMAL) Hemoglobin A1c (03/15/2018 9:54 AM CDT) Hgb A1C 9.4(H) <5.7 % of total Hgb [facility] Comment: For someone without known diabetes, a hemoglobin A1c value of 6.5% or greater indicates that they may have diabetes and this should be confirmed with a follow-up test. For someone with known diabetes, a value <7% indicates that their diabetes is well controlled and a value greater than or equal to 7% indicates suboptimal control. A1c targets should be individualized based on duration of diabetes, age, comorbid conditions, and other considerations. Currently, no consensus exists regarding use of hemoglobin A1c for diagnosis of diabetes for children. 03/15/2018 9:54 AM CDT 03/15/2018 9:58 AM CDT Narrative [facility] - 03/16/2018 7:19 AM CDT FASTING:YES FASTING: YES Resulting Agency Comment Performing Organization Information: Site ID: [place] Name: [email or web address] Address: [address] [place] [address] Director: Abdon Deal D.O., MPH Amrik De Santiago MD LAB BLOOD ORDERABL ES Final Result [facility] [place] * COLONOSCOPY REPORT (11/07/2012) Anatomical Region Laterality Modality Other Narrative 11/07/2012 Ordered by an unspecified provider. Historical Provider GI PROCEDURE ORDERABLES F inal Result from Last 3 Months or Most Recently Relevant to Health Maintenance Insurance IDPA [facility] [place] [address] [place] [address] Care Teams Ointment Mill Tender Relationship Specialty Start Date End Date Amrik De Santiago MD [address] [place] [address] PCP - General 09/25/07
--- OUTSIDE RECORDS SUMMARY | 2024-09-04 15:42 | XMS_ITS | Referral Summary ---
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 Visit [facility] Medical [facility] Cardiology at [address] [place] [address] Bay Shook MD Hyperlipidemia associated with type 2 diabetes mellitus (HCC) (Primary Dx); Coronary artery disease of [place] artery of [place] heart with stable angina pectoris; Hypertension associated with diabetes (HCC); Non-rheumatic aortic stenosis; Pulmonary HTN (HCC) 08/04/2024 Telephone [facility] Group Cardiology [address] [facility] [address] [place] [address] Bay Shook MD from Last 3 Months Allergies Active Allergy Reactions Criticality Noted Date [...] 1 tablet by mouth daily Active multivitamin-C y-hfng-hzkqryt s tablet Take 1 tablet by mouth [...] mg total) by mouth daily. 1 capsule Active buPROPion XL (WELLBUTRIN XL) 150 mg 24 hr tablet Take 2 tablets (300 mg total) by mouth daily Active Movantik 25 mg tablet Take 1 tablet (25 mg total) by mouth daily before breakfast Active prochlorperazi ne (COMPAZINE) 10 mg tablet Take 1 tablet (10 mg total) by mouth every 6 (six) hours as needed for nausea Active propranolol LA (INDERAL LA) 160 mg 24 hr capsule Take 1 capsule (160 mg total) by mouth daily Active furosemide (LASIX) 20 mg tablet TAKE 1 TABLET (20 MG TOTAL) BY MOUTH DAILY NEEDED (SWELLING) 30 tablet 2025 Active loratadine (CLARITIN) 10 mg tablet [...] by mouth daily Pt taking 2.5 mg 023 Active ferrous sulfate ER 324 mg (65 mg iron) EC tabletIndicati ons:Iron Deficiency Anemia Take 65 mg by mouth every other day Active losartan (COZAAR) 50 mg tablet Take 1 tablet (50 mg total) by mouth daily 023 Active Breztri Aerosphere 160-9-4.8 mcg/actuation HFA aerosol inhaler 024 Active Mounjaro 5 mg/0.5 mL pen injector INJECT 5 MG (0.5 ML) SUBCUTANEOUSLY WEEKLY Active colesevelam (WELCHOL) 625 mg tablet Take 1 tablet (625 mg total) by mouth 2 (two) times a day with meals Active nitroglycerin (NITROSTAT) 0.4 mg SL tabletIndicati ons:Coronary artery disease of [place] artery of [place] heart with stable angina pectoris Place 1 tablet (0.4 mg total) under the tongue every 5 (five) minutes as needed for chest pain May use up to 3 doses, call ambulance with 3rd dose 25 tablet 2 Active isosorbide mononitrate ER (IMDUR) 30 mg 24 hr tabletIndicati ons:Coronary artery disease of [place] artery of [place] heart with stable angina pectoris Take 1 [...] (03/09/2022): Added automatically from request for surgery [id number] Lightheadedness 08/11/2020 Non-rheumatic aortic stenosis 10/22/2019 SOB (shortness of breath) 07/28/2019 Preop cardiovascular exam 06/27/2018 Left arm pain 06/27/2018 Coronary artery disease of [place] artery of [place] heart with stable angina pectoris 07/26/2017 Pulmonary HTN 07/26/2017 Diabetes mellitus type II, non insulin dependent 07/02/2017 Abnormal stress test 07/02/2017 Essential hypertension 07/02/2017 Hyperlipidemia LDL goal <70 07/02/2017 Hyperlipidemia associated with type 2 diabetes m ellitus 07/02/2017 Hypertension associated with diabetes 07/02/2017 Fibromyalgia 07/02/2017 Recurrent major depressive disorder, in partial remission 07/02/2017 Lipoma 10/24/2013 Overview (09/15/2016): LIPOMA NOS Social History Tobacco Use Types Packs/Day Years [...] on file Legal Sex Female 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 Gender Identity Female 11/21/2018 6:34 PM CDT Sexual Orientation Straight 11/21/2018 6: 34 PM CDT Last Filed Vital Signs Vital Sign Reading Time Taken Comments Blood Pressure 124/82 08/05/2024 3:17 PM COMMERCIAL INSTALLER Pulse 72 08/05/2024 3:17 PM COMMERCIAL INSTALLER Temperature 36.6 C (97.9 F) 03/23/2022 6:54 AM CDT Respiratory Rate 20 03/23/2022 6:54 AM CDT Oxygen Saturation 90% 08/05/2024 3:17 PM COMMERCIAL INSTALLER Inhaled Oxygen Concentration - - Weight 96.6 kg (213 lb) 08/05/2024 3:17 PM COMMERCIAL INSTALLER Height 167.6 cm (5' 6 ) 08/05/2024 3:17 PM COMMERCIAL INSTALLER Body Mass Index 34.38 08/05/2024 3:17 PM COMMERCIAL INSTALLER Plan of Treatment Not on file Medical Devices Implanted Type Area Senior Maintenance Technician Device Identifier Shelf Expiration Date Model / Serial / Lot System Coronary Stent Synergy Pebax Everolimus Eluting [place] Chromium Plga L24 Mm L144 Cm Od2.75 Mm Radiopaque 1 Access Port Inflation Lumen Accepts .014 In Guidewire - [id number] Implanted:Qty: 1 on 07/04/2017 by Nathan Rivera MD at [facility] [employer] Kendrick 02/13/2018 [id number] / / [id number] Medtronic Card Vasc Surgery 3.0 X 12mm Edmundo Aguada Rx Coronary Stent [id number] - [id number] Implanted:Qty: 1 on 03/23/2022 by Nathan Rivera MD at [facility] Medtronic Card Vasc Surgery 11/06/2023 [id number] / / [id number] Access [employer] Mynx Control 6-7fr 2 Mode Balloon Catheter Sealant Lock Syringe [id number] - [id number] Implanted:Qty: 1 on 03/23/2022 by Nathan Rivera MD at [facility] [employer] 02/08/2024 [id number] / / [id number] Procedures Procedure Name Priority Date/Time Associated Diagnosis Comments POCT LIPID PANEL Routine 08/05/2024 3:13 PM COMMERCIAL INSTALLER Hyperlipidemia associated with type 2 diabetes mellitus (HCC) BASIC METABOLIC PANEL Routine 03/19/2022 10:26 AM CDT Pre-procedure lab exam Coronary artery disease of [place] artery of [place] heart with stable angina pectoris HEMOGLOBIN A1C Routine 03/15/2018 9:54 AM CDT COLONOSCOPY REPORT 11/07/2012 from Last 3 Months or Most Recently Relevant to Health Maintenance Results * POCT lipid panel (08/05/2024 3:13 PM COMMERCIAL INSTALLER) Cholesterol, POC 144 mg/dL HDL, POC 45 mg/dL Triglycerides, POC 143 mg/dL LDL Cholesterol POC 70 mg/dL Chol/HDL Ratio, POC 3.2 Non-HDL Cholesterol, POC 98 mg/dL Cholesterol Total, POC 144 mg/dL Capillary blood 08/05/2024 3 :13 PM COMMERCIAL INSTALLER us Bay Shook MD POINT OF CARE TEST ORDERA BLES Final Result * (ABNORMAL) Basic metabolic panel (03/19/2022 10:26 AM CDT) Glucose 166(H) 65 - 139 mg/dL [facility] Comment: Non-fasting reference interval BUN 10 7 - 25 mg/dL [facility] Creatinine 0.88 0.50 - 1.05 mg/dL [facility] eGFR 72 > OR = 60 mL/min/1. 73m2 [facility] Comment: The eGFR is based on the CKD-EPI 2020 equation. To calculate the new eGFR from a previous Creatinine or Cystatin C result, go to https://www.kidney.org/professionals/ kdoqi/gfr%5Fcalculator BUN/creat ratio NOT APPLICABLE 6 (calc) [facility] Sodium 135 135 - 146 mmol/L [facility] Potassium, pl 4.3 3.5 - 5.3 mmol/L [facility] Chloride 96(L) 98 - 110 mmol/L [facility] CO2 32 20 - 32 mmol/L [facility] Calcium 8.9 8.6 - 10.4 mg/dL [facility] Blood 03/19/2022 10:2 6 AM CDT 03/19/2022 10:27 AM CDT Narrative [facility] - 03/20/2022 5:23 AM CDT FASTING:NO FASTING: NO us Nathan Rivera MD LAB BLOOD ORDERABLES Final Resul t [facility] [address] [address] * (ABNORMAL) Hemoglobin A1c (03/15/2018 9:54 AM CDT) Hgb A1C 9.4(H) <5.7 % of total [facility] Comment: For someone without known diabetes, [...] Agency Comment Performing Organization Information: Site ID: [id number] Name: [facility] [employer] Address: [address] [address] Director: Abdon Deal D.O., MPH us Amrik De Santiago MD LAB BLOOD ORDERABL ES Final Result [employer] [facility] calvillo * COLONOSCOPY REPORT (11/07/2012) Anatomical Region Laterality Modality Other Narrative 11/07/2012 Ordered by an unspecified provider. us Historical Provider GI PROCEDURE ORDERABLES F inal Result from Last 3 Months or Most Recently Relevant to Health Maintenance Insurance [facility] [place] [address] [facility] IDMT [facility] MEDICARE ADVANTAGE IDPA Care Teams Corn Miller Relationship Specialty Start Date End Date Amrik De Santiago MD [address] [place] [address] PCP - General 09/25/07
--- OUTSIDE RECORDS SUMMARY | 2024-09-04 15:43 | XMS_ITS ---
Author Organization [facility] Belly Ballot Address [address] [facility] [address] [place] [address] Care Team Providers Care Intellectual Property Manager Name Role Phone Anyi RODRIGUEZ, Amrik Primary Care Provider Donna Yessenia Garcia Unavailable [phone] Pau Corona Unavailable [phone] Allergies Allergen (clinical drug ingredient) Drug/Non Drug Allergy documented on EMR Reaction Allergy Type Onset Date Status ADHESIVE TAPE (uncoded) Unknown Allergy 05/23/2023 Active meperidine Demerol Unknown Drug Allergy 05/23/2023 Activ e phenobarbital PHENobarbital Unknown Drug Allergy 3 Active Tetanus Toxoids Unknown Drug Allergy 05/23/2023 Active REASON FOR VISIT follow-up, anxiety, depression, trauma Medications Medication SIG (Take, Route, Frequency, Duration) Notes Start Date End Date Status Brilinta 60 mg Oral 09/24/2023 Unkn own Gabapentin 800 MG Oral 09/24/2023 U nknown Propranolol HCl ER 160 MG Oral 09/24/2023 Unknown Nitroglycerin 0.4 MG Sublingual 09/24/2023 Unknown Atorvastatin Calcium 20 MG Oral 09/24/2023 Unknown Morphine Sulfate ER 60 MG Oral 09/24/2023 Unknown Januvia 100 MG Oral 09/24/2023 Unkn own DEXLANSOPRAZOLE 60 MG CAPSULE,BIPHASE DELAYED RELEASE *Reorder from [employer] for eRx and Interaction Alerts* 09/24/2023 Unknown Nadolol 20 MG Oral 09/24/2023 Unkno wn Isosorbide Mononitrate ER 30 MG Oral 09/24/2023 Unknown Vascepa 1 GM Oral 09/24/2023 Unknow n Budesonide 0.5 MG/2ML Inhalation 09/24/2023 Unknown Movantik 25 MG Oral 09/24/2023 Unkn own Glimepiride 2 MG Oral 09/24/2023 Un known Colesevelam HCl 625 mg ORAL 09/24/2023 Unknown Losartan Potassium 50 MG Oral 09/24/2023 Unknown Prochlorperazine Maleate 10 MG Oral 09/24/2023 Unknown Breztri Aerosphere 160-9-4.8 MCG/ACT Inhalation *Reorder from [facility] [facility] for eRx and Interaction Alerts* 09/24/2023 Unknown Metoclopramide HCl 10 MG Oral 09/24/2023 Unknown metFORMIN HCl 500 MG Oral 09/24/2023 Unknown Contour Blood Glucose System w/Device In Vitro 09/24/2023 Unknown lamoTRIgine 150 MG 1 tablet Oral once a day for 30 days Active lamoTRIgine 100 MG 1.5 tablet Oral once a day for 30 days in the morning dose increase Active lamoTRIgine 200 MG 1 tablet at bedtime Oral Once a day for 30 days Active Escitalopram Oxalate 20 MG 1 tablet Oral Once a day for 30 days Active ARIPiprazole 5 MG 1 tablet Oral Once a day for 30 days Active lamoTRIgine 200 MG 1 tablet at bedtime Oral Once a day for 30 days Active rOPINIRole HCl 2 MG Oral 09/24/2023 Active buPROPion HCl ER (XL) 300 MG 1 tablet every morning Oral Once a day for 30 days Active Social History Tobacco Use: Social History Observation [...] years Encounters Encounter Location Date Provider Diagnosis [facility] [place] [address] [address] 08/24/2024 Pau Corona Encounter for screen ing for depression Z13.31 ; Major depressive disorder, recurrent severe without psychotic features F33.2 ; Generalized anxiety disorder F41.1 and Chronic posttraumatic stress disorder F43.12 Assessments Encounter Date Diagnosis (ICD Code) Assessment Notes Treatment Notes Treatment Clinical Notes Section Notes 08/24/2024 Encounter for screening for depression (ICD-10 - Z13.31) 08/24/2024 Major depressive disorder, recurrent severe without psychotic features (ICD-10 - F33.2) 08/24/2024 Generalized anxiety disorder (ICD-10 - F41.1) 08/24/2024 Chronic posttraumatic stress disorder (ICD-10 - F43.12) 08/24/2024 Other Client reports she is feeling a little under the weather this morning (physical health). She states her wrist is still not fully healed and it continues to interfere with her ability to fullly engage in usual activities. She has been getting her friend to appointments but doesn't really enjoy getting out. However, she and her friend are very close and friend does not abuse client's help. Client is feeling good about being able to stay home today. She states she has some paperwork to complete in relation to her brother's (2022). She states it is difficult to do because it brings back thoughts of how he . Therapist actively listened to client and utilized a cognitive behavioral intervention to help client explore strategies to complete the needed paperwork (set aside 15 minutes a couple of times a week to work on the forms and reward herself for doing so). PHQ=13 moderate Plan Of Treatment Next Appt Details Follow Up: 2 Weeks, Reason: therapy follow up Provider Name:Pau Corona , 09/17/2024 11:00:00 AM, [facility] [facility], [address], [address], Provider Name:Pau Corona , 10/01/2024 11:00:00 AM, [address], [address], [address], Provider Name:Yessenia Snow, 10/01/2024 01:45:00 PM, [address], [address], [address], Provider Name:Pau Corona , 10/15/2024 11:00:00 AM, [address], [address], [address], Progress Notes * DAMARIS SCHMIDTDOB:[birth year] (68 yo F)Acc No.[id number]:08/24/2024 Patient: DAMARIS CARR Provider: Melissa CORONA LCSW :1955 A ge:68 Y S ex:Female Date:08/24/2024 Address:[address] [place], [place] [address] Pcp:Amrik De Santiago MD Check In:09:00 AM CSTCheck O ut:09:54 AM APPLICATIONS INTERN Data: * Time Tracker: * Date Start Time End Time Duration User Type Captured By Mode Notes 08/24/2024 09:00 AM 09:53 AM 00:53:00 Therapist Pau Corona anual * Chief Complaints: * 1 . Follow-up. 2. Anxiety. 3. Depression. 4. Trauma. * HPI: F unctional Status: Client [...] was conducted via a HIPAA-compliance audio/visual platform. D epression screening: PHQ-9 L ittle interest or pleasure in doing things M ore than half the days, F eeling down, depressed, or hopeless M ore than half the days, T rouble falling or staying asleep, or sleeping too much M ore than half the days, F eeling tired or having little energy M ore than half the days, P oor appetite or overeating S everal days, F eeling bad about yourself or that you are a failure, or have let yourself or your family down M ore than half the days, T rouble concentrating on things, such as reading the newspaper or watching television M ore than half the days, M oving or speaking so slowly that other people could have noticed; or the opposite, being so fidgety or restless that you have been moving around a lot more than usual S everal days, T houghts that you would be better off or of hurting yourself in some way S ever (Consider Suicide Assessment Risk), T otal Score 1 3, I nterpretation M oderate Depression. I ntervention D epression Screening Findings P osSarah mistry ollow-Up for Depression M ental health treatment assessment, Patient follow-up to return when and if necessary, S uicide Risk Assessment Performed 0 08/24/2024 Client denies plan or intent to harm herself at this time per PHQ, A dditional Evaluation for Depression P sychiatric interview and evaluation, N tristan of the standardized tool used for adult depression screening: P [facility] Health Questionnaire (PHQ-9). * Behavioral History: P ast psychiatric Hospitalization:Yes. [...] * Surgical History: R emoval of gallbladder (47993) , Cardiac stent , Hysterectomy/revise vagina (94387) , Removal of ovary(s) (27283) , Other , Tonsilectomy/adenoids , Any surgical history , Total replacement of left knee joint ([id number]) , Tonsilectomy/adenoids 06/10/1958, Tonsilectomy/adenoids 06/10/1960, Other 07/04/2017, Cardiac stent 07/04/2017, Hysterectomy (03120) 10/29/1987, Cardiac stent 03/23/2022. * Family History: F ather: Depressive disorder , Morbid obesity . M aternal Uncle: Diabetes mellitus . M other: Diabetes mellitus , Family history of cancer . P aternal Grandmother: Family history of sudden cardiac . M aternal Grandfather: Alcohol abuse , Diabetes mellitus . B rother: Schizophrenia . D aughter: Bipolar disorder . * Social History: T obacco Use: T obacco Control (Standard) T obacco use: F ormer smoker, W hen did you stop smoking? 1 07/21/2023, H ow long has it been since you last smoked? G reater than 10 years.? * Medications: T aking rOPINIRole HCl 2 MG Tablet Oral , Taking lamoTRIgine 200 MG Tablet 1 [...] the morning, Notes to Pharmacist: dose increase, Taking lamoTRIgine 150 MG Tablet 1 tablet Oral once a day , Unknown Contour Blood Glucose System w/Device Kit In Vitro , Unknown metFORMIN HCl 500 MG Tablet Oral , Unknown Metoclopramide HCl 10 MG Tablet Oral , Unknown Breztri Aerosphere 160-9-4.8 MCG/ACT Aerosol Inhalation , Notes to Pharmacist: *Reorder from [facility] [facility] for eRx and Interaction Alerts*, Unknown Prochlorperazine [...] RELEASE , Notes to Pharmacist: *Reorder from [employer] for eRx and Interaction Alerts*, Unknown Januvia [...] 05/23/2023. * Vitals: * Examination: P sychiatry: Deepika mendez is casually groomed and oriented X 3. Assessment: * Assessment: 1. M ajor depressive disorder, recurrent severe without psychotic features - F33.2 (Primary)? 2. E ncounter for screening for depression - Z13.31 3 . G eneralized anxiety disorder - F41.1 4 . C hronic posttraumatic stress disorder - F43.12 Plan: * Treatment: * Procedure Codes: 9 0837 PSYCHOTHERAPY W/PATIENT 60 MINUTES, Units: 2.00 , Modifiers: 95 , 99637 BEHAV ASSMT W/SCORE & DOCD/STAND INSTRUMENT, G8431 CLIN DEPRESSION SCREEN DOC * Follow Up: 2 Weeks (Reason: therapy follow up) * Billing Information: * Visit Code: * Procedure Codes: 54793 PSYCHOTHERAPY W/PATIENT 60 MINUTES. Units: 2.00. Modifiers: 95 06886 BEHAV ASSMT W/SCORE & DOCD/STAND INSTRUMENT. G8431 CLIN DEPRESSION SCREEN DOC. * Sign off status: Completed Signatures: No Ad Hoc Signature Added true * Provider: Melissa CORONA LCSW Date: 0 08/24/2024 Generated for Megan hardin/Everett/Halina on: 0 09/04/2024 03:42 PM CDT History and Physical Notes * HPI (History of Present Illness) Category Sub-Category Detail Notes Category Not es Depression screening PHQ-9 Little inte rest or pleasure in doing things: More than half the days Feeling down, depressed, or hopeless: Mo re than half the days Trouble falling or staying a sleep, or sleeping too much: More than half the days Feeling tired or having little energy: M ore than half the days Poor appetite or overeating: Several day s Feeling bad about yourself o r that you are a failure, or have let yourself or your family down: More than half the days Trouble concentrating on thi ngs, such as reading the newspaper or watching television: More than half the days Moving or speaking so slowly that other people could have noticed; or the opposite, being so fidgety or restless that you have been moving around a lot more than usual: Several days Thoughts that you would be b jarad off or of hurting yourself in some way: Several days (Consider Suicide Assessment Risk) Total Score: 13 Interpretation: Moderate Depression Intervention Depression Screening Findings: P ositve Follow-Up for Depression: [facility] treatment assessment, Patient follow-up to return when and if necessary Suicide Risk Assessment Performed: 08/24 Client denies plan or intent to harm herself at this time per PHQ Additional Evaluation for De pression: Psychiatric interview and evaluation Name of the standardized too l used for adult depression screening:: Patient Health Questionnaire (PHQ-9) Examination Category Sub-Category Detail Notes Category Not es Psychiatry Client is casua jeriy groomed and oriented X 3
--- OUTSIDE RECORDS SUMMARY | 2024-09-04 15:43 | XMS_ITS | Clinical Summary ---
Author Organization [facility] Address [address] [place] [address] Care Team Providers Care Manager Concrete Name Role Phone Unavailable Primary Care Provider Unavailabl e Medications QUEtiapine (SEROquel) 50 mg tablet Take 1 Tablet (50 mg) by mouth daily at bedtime NEEDED. 30 Tablet 1 4 5:11 PM CDT 03/05/20 24 Active ARIPiprazole (ABILIFY) 5 mg tablet Take 1 Tablet (5 mg) by mouth daily. 90 Tablet 02/28/20 24 Active buPROPion HCL (WELLBUTRIN XL) 300 mg Extended Release 24 hour tablet Take 1 Tablet (300 mg) by mouth daily in the morning. 90 Tablet 03/03/20 24 Active buPROPion HCL (WELLBUTRIN XL) 300 mg Extended Release 24 hour tablet Take 1 Tablet (300 mg) by mouth daily in the morning. 30 Tablet 1 03/05/20 24 Active lamoTRIgine (LaMICtal) 25 mg tablet Take 3 Tablets (75 mg) by mouth daily in the morning. 90 Tablet 1 4 3:39 PM APPRAISAL TECHNICIAN 03/05/20 24 Active lamoTRIgine (LaMICtal) 200 mg tablet Take 1 Tablet (200 mg) by mouth daily at bedtime. 30 Tablet 1 03/05/20 24 Active lamoTRIgine (LaMICtal) 25 mg tablet Take 3 tablets by mouth daily. 270 Tablet 03/03/20 24 Active lamoTRIgine (LaMICtal) 200 mg tablet Take 1 Tablet (200 mg) by mouth daily at bedtime. 90 Tablet 03/03/20 24 Active ARIPiprazole (ABILIFY) 5 mg tablet Take 1 Tablet (5 mg) by mouth daily. 30 Tablet 1 03/05/20 24 Active isosorbide mononitrate (IMDUR) 30 mg Extended Release 24 hour tablet Take 1 Tablet (30 mg) by mouth daily. 90 Tablet 04/27/20 23 Active ticagrelor (Brilinta) 60 mg Tablet Take 1 Tablet (60 mg) by mouth 2 times daily. 60 Tablet 11 5 6:41 PM APPRAISAL TECHNICIAN 07/27/19 24 Active metoclopramide HCl (REGLAN) 10 mg tablet Take 1 Tablet (10 mg) by mouth daily at bedtime as needed for nausea 90 Tablet 1 5 5:40 PM APPRAISAL TECHNICIAN 02/04/20 24 Active gabapentin (NEURONTIN) 800 mg tablet Take 1 Tablet (800 mg) by mouth 4 times daily. 120 Tablet 5 4 5:46 PM APPRAISAL TECHNICIAN 01/27/20 24 Active prochlorperazi ne maleate (COMPAZINE) 10 mg tablet Take 1 Tablet (10 mg) by mouth every 8 hours as needed FOR NAUSEA. 20 Tablet 3 4 4:32 PM CDT 03/16/20 24 Active lamoTRIgine (LaMICtal) 200 mg tablet Take 1 tablet (200 mg) by mouth daily at bedtime. 30 Tablet 1 5 5:33 PM APPRAISAL TECHNICIAN 04/02/20 24 Active escitalopram oxalate (LEXAPRO) 20 mg tablet Take 1 tablet (20 mg) by mouth daily. 30 Tablet 1 4 12:07 PM APPRAISAL TECHNICIAN 04/02/20 24 Active buPROPion HCL (WELLBUTRIN XL) 300 mg Extended Release 24 hour tablet Take 1 Tablet (300 mg) by mouth daily in the morning. 30 Tablet 1 4 5:00 PM CDT 04/02/20 24 Active ARIPiprazole (ABILIFY) 5 mg tablet Take 1 Tablet (5 mg) by mouth daily. 30 Tablet 1 5 6:41 PM APPRAISAL TECHNICIAN 04/02/20 24 Active dexlansoprazol e (Dexilant) 60 mg Delayed Release capsule Take 1 Capsule (60 mg) by mouth daily. 30 Capsule 5 4 5:46 PM APPRAISAL TECHNICIAN 04/06/20 24 Active isosorbide mononitrate (IMDUR) 30 mg Extended Release 24 hour tablet Take 1 tablet (30 mg total) by mouth daily 90 Tablet 2 5 2:44 PM APPRAISAL TECHNICIAN 04/06/20 24 Active rOPINIRole (REQUIP) 3 mg Tablet Take 1 Tablet (3 mg) by mouth daily at bedtime. 30 Tablet 5 5 2:08 PM APPRAISAL TECHNICIAN 04/23/20 24 Active rOPINIRole (REQUIP) 3 mg Tablet Take 1 Tablet (3 mg) by mouth daily at bedtime. 30 Tablet 5 04/23/20 24 Active lamoTRIgine (LaMICtal) 25 mg tablet Take 3 Tablets (75 mg) by mouth daily in the morning. 90 Tablet 05/10/20 24 Active atorvastatin (LIPITOR) 20 mg tablet Take 1 Tablet (20 mg) by mouth daily. 30 Tablet 5 5 2:44 PM APPRAISAL TECHNICIAN 05/11/20 24 Active tirzepatide (Mounjaro) 5 mg/0.5 mL Pen Injector Inject 0.5 mL (5 mg) by subcutaneous injection every 7 days. 2 mL 4 5 5:40 PM APPRAISAL TECHNICIAN 06/09/20 24 Active rOPINIRole (REQUIP) 1 mg tablet Take 1 Tablet (1 mg) by mouth daily at bedtime. TAKE 1 MG DOSE WITH 3 MG DOSE TO EQUAL 4 MG NIGHTLY. 90 Tablet 5 6:41 PM APPRAISAL TECHNICIAN 06/16/19 25 Active naloxegoL (Movantik) 25 mg Tablet Take 1 Tablet (25 mg) by mouth daily in the morning. 30 Tablet 5 5 12:29 PM CDT 06/16/19 25 Active colesevelam (WELCHOL) 625 mg Tablet Take 6 tablets by mouth daily 180 Tablet 5 5 12:29 PM T 06/28/19 25 Active clopidogreL (PLAVIX) 75 mg Tablet Take 1 Tablet (75 mg) by mouth daily. 30 Tablet 10 5 2:44 PM APPRAISAL TECHNICIAN 07/07/19 25 Active primidone (MYSOLINE) 50 mg tablet Take 3 Tablets (150 mg) by mouth daily at bedtime. 90 Tablet 5 5 2:52 PM APPRAISAL TECHNICIAN 07/07/19 25 Active lamoTRIgine (LaMICtal) 100 mg tablet Take 1 Tablet (100 mg) by mouth daily. 30 Tablet 1 5 2:52 PM APPRAISAL TECHNICIAN 07/13/19 25 Active lamoTRIgine (LaMICtal) 200 mg tablet Take 1 Tablet (200 mg) by mouth daily at bedtime. 30 Tablet 1 5 12:29 PM CDT 07/20/19 25 Active ARIPiprazole (ABILIFY) 5 mg tablet Take 1 Tablet (5 mg) by mouth daily. 30 Tablet 1 5 2:08 PM APPRAISAL TECHNICIAN 07/23/19 25 Active lamoTRIgine (LaMICtal) 200 mg tablet Take 1 Tablet (200 mg) by mouth at bedtime. 30 Tablet 1 07/23/19 25 Active lamoTRIgine (LaMICtal) 100 mg tablet Take 1.5 Tablets (150 mg) by mouth daily in the morning. 45 Tablet 1 07/23/19 25 Active escitalopram oxalate (LEXAPRO) 20 mg tablet Take 1 Tablet (20 mg) by mouth daily. 30 Tablet 1 5 2:08 PM APPRAISAL TECHNICIAN 07/23/19 25 Active buPROPion HCL (WELLBUTRIN XL) 300 mg Extended Release 24 hour tablet Take 1 Tablet (300 mg) by mouth daily in the morning. 30 Tablet 1 5 2:08 PM APPRAISAL TECHNICIAN 07/23/19 25 Active glimepiride (AMARYL) 2 mg tablet Take 1 Tablet (2 mg) by mouth daily. 30 Tablet 5 5 3:05 PM APPRAISAL TECHNICIAN 07/26/19 25 Active oxyBUTYnin (DITROPAN XL) 15 mg Extended Release 24 hour tablet Take 1 Tablet (15 mg) by mouth daily. 30 Tablet 5 5 3:05 PM APPRAISAL TECHNICIAN 07/27/19 25 Active metFORMIN (GLUCOPHAGE) 500 mg tablet Take 2 Tablets (1,000 mg) by mouth daily. 60 Tablet 5 5 5:40 PM APPRAISAL TECHNICIAN 08/03/19 25 Active propranoloL (INDERAL LA) 160 mg Long Acting 24 hour capsule Take 1 Capsule (160 mg) by mouth daily. 30 Capsule 6 5 5:40 PM APPRAISAL TECHNICIAN 08/02/19 25 Active lamoTRIgine (LaMICtal) 150 mg tablet Take 1 Tablet (150 mg) by mouth daily. 30 Tablet 5 2:44 PM APPRAISAL TECHNICIAN 08/11/19 25 Active icosapent ethyL (Vascepa) 1 gram Capsule Take 2 Capsules (2 Grams) by mouth 2 times daily. 120 Capsule 11 09/01/19 25 Active morphine (MS CONTIN) 60 mg Controlled Release tablet Take 1 Tablet (60 mg) by mouth every 12 hours. Max Daily Amount: 120 mg 60 Tablet 09/01/19 25 Active morphine (MS CONTIN) 30 mg Controlled Release tablet Take 2 tablets by mouth every 12 hours 120 Tablet 09/03/19 25 Active icosapent ethyL (VASCEPA) 1 gram Capsule Take 2 Capsules (2 Grams) by mouth 2 times daily. 120 Capsule 11 4 5:46 PM APPRAISAL TECHNICIAN 11/29/19 24 2024 Discontinued morphine (MS CONTIN) 60 mg Controlled Release tablet Take 1 Tablet (60 mg) by mouth every 12 hours. Max Daily Amount: 120 mg 60 Tablet 5 5:40 PM APPRAISAL TECHNICIAN 08/02/19 25 2024 Discontinued(Stefany freitas) Encounters Date Type Department Care Team Description 08/26/2024 External Device Data [facility] ABSTRACTION Provider, Abstract 08/15/2024 External Device Data [facility] Provider, Abstract 08/14/2024 External Device Data [facility] Provider, Abstract 08/12/2024 External Device Data [facility] Provider, Abstract 08/12/2024 External Device Data [facility] Provider, Abstract 07/29/2024 External Device Data [facility]CTION Provider, Abstract 07/01/2024 External Device Data [facility] Provider, Abstract 07/01/2024 External Device Data [facility] ABSTRACTION Provider, Abstract from Last 3 Months Social History Tobacco Use Types Packs/Day Years Used Date Smoking Tobacco: Never Assessed Comments Unknown Sex and Gender Information Value Date Recorded Sex Assigned at Not on file Legal Sex Female 10:19 AM CDT Gender Identity Not on file Sexual Orientation Not on file Plan of Treatment Health Maintenance Due Date Last Done Comments DTAP/TDAP/TD VACCINES (1 - Tdap) 1973 BREAST CANCER SCREENING 1994 COLORECTAL SCREENING 12/17/1999 Colorectal Cancer Screening 12/17/1999 FIT-DNA Q 3 years 12/17/1999 FIT/FOBT Q 1 year 12/17/1999 Flex Sig/CT Colonography Q 5 years 12/17/1999 PNEUMOCOCCAL VACCINE 50+ YEARS (1 of 1 - PCV) 12/17/19 05 ZOSTER VACCINE (1 of 2) 2004 OSTEOPOROSIS SCREENING 12/17/2019 INFLUENZA VACCINE (#1) 2024 RSV VACCINE (60+ or ) (1 - 1-dose 75+ series) 2029 Insurance #[id number] [place] [address] RX [employer] Member Subscriber Plan / Payer (Ef fective 2023-Present) Name:Ramona Mariee Relation to Subscriber:Self Name:Ramona Mariee Subscriber ID:Not on file Payer ID:Not on file Group ID:[id number] Type:RX Medicare Part D Address: [address] [employer] (INTERNAL) [facility] [employer] [facility]
== END 2024-09-04 15:39 | disposition home or self-care (01) ==
PROVIDERS: PCP Family Medicine Adolescent Medicine; Visit Provider Family Medicine Adolescent Medicine
DX: M19.031 Primary osteoarthritis, right wrist (principal)
CPT/HCPCS: 73110

== ENCOUNTER 2025-02-18 11:35 | Outpatient (CLI) | payer MEDICARE, MEDICAID, SELFPAY ==
--- NOTE | ~2025-02-18 | CT_ITS ---
EXAMINATION: CT wrist RT wo con DATE: 02/18/2025 12:16 INDICATION: Right wrist pain. TECHNIQUE: Computed tomography (CT) of the right wrist was performed without intravenous contrast. Automated exposure control and iterative reconstruction technique were employed. The dose-length product was 67.74 mGy-cm. COMPARISON: Right wrist radiographs 09/04/2024 FINDINGS: Alignment is normal. There is fracture deformity of dorsal medial aspect of distal radius with involvement of the distal articular surface and distal radioulnar joint. There is mild osteoarthritis of distal radioulnar joint, triscaphe joint, and first carpometacarpal joint. IMPRESSION: 1. Nondisplaced fracture deformity of distal radius, likely subacute or chronic. 2. Mild polyarticular osteoarthritis. Reviewed, dictated and finalized at location E. IMPRESSION: 1. Nondisplaced fracture deformity of distal radius, likely subacute or chronic . 2. Mild polyarticular osteoarthritis.
== END 2025-02-18 11:36 | disposition home or self-care (01) ==
PROVIDERS: PCP Family Medicine Adolescent Medicine; Visit Provider Family Medicine Adolescent Medicine
DX: M19.031 Primary osteoarthritis, right wrist (principal); S52.501D Unspecified fracture of the lower end of right radius, subsequent encounter for closed fracture with routine healing; X58.XXXD Exposure to other specified factors, subsequent encounter
CPT/HCPCS: 73200

== ENCOUNTER 2025-05-03 11:23 | Outpatient (CLI) | payer MEDICARE, MEDICAID, SELFPAY ==
--- NOTE | ~2025-05-03 | XR_ITS ---
EXAMINATION: XR foot RT min 3V, 05/03/2025 11:40 SEALS ENGRAVER HISTORY: Pain and swelling on dorsum of right foot COMPARISON: No comparisons available. Findings: No acute fracture or malalignment. No significant degenerative changes. Soft tissues unremarkable. Impression: No acute fracture or malalignment. Reviewed, dictated and finalized at location P. S ENGRAVER Impression: No acute fracture or malalignment.
== END 2025-05-03 11:24 | disposition home or self-care (01) ==
PROVIDERS: PCP Family Medicine Adolescent Medicine; Visit Provider Family Medicine Adolescent Medicine
DX: M79.671 Pain in right foot (principal)
CPT/HCPCS: 73630